=== PATIENT | female | born 1980 | race Caucasian/White ===

== ENCOUNTER 2019-04-25 14:08 | Inpatient (IN) | payer BC, SELFPAY ==
[2019-04-25 14:12] VITALS: BP 142/96; PULSE 96; RESP 16; TEMP 36.2; O2SAT 98; BMI 53.6
[2019-04-25 14:40] LABS: Add Manual Diff / Slide Review NO; Basophils Absolute Auto 100 /uL (0-100); Basophils Percent Auto 0.4 % (0-2); Eosinophils Absolute Auto 100 /uL (0-450); Eosinophils Percent Auto 1.1 % (2-4); Hematocrit 40.5 % (36-46); Hemoglobin 13.7 g/dL (12.0-16.0); Lymphocytes Absolute Auto 1600 /uL (1100-4500); Lymphocytes Percent Auto 12.5 % (25-40); Mean Corpuscular HGB Conc 33.8 % (30-36); Mean Corpuscular Hemoglobin 28.7 PG (26-34); Monocytes Absolute Auto 800 /uL (0-900); Monocytes Percent Auto 6.3 % (3-14); Neutrophils Absolute Auto 10400 /uL (1500-7000); Neutrophils Percent Auto 79.7 % (50-75); Platelet Count 617 X10^3/uL (150-400); Red Blood Cell Count 4.77 X10^6/uL (4.0-5.2); Red Cell Distribution Width 14.3 % (11.6-14.8)
[2019-04-25 14:46] LABS: INR 1.1 (0.9-1.3); Prothrombin Time 12.6 SECONDS (10.1-12.7)
[2019-04-25 14:49] LABS: PTT Partial Thromboplastin Tim 30 SECONDS (26.4-36.2)
[2019-04-25 14:51] LABS: Alanine Aminotransferase 45 IU/L (<35); Albumin 4.7 g/dL (3.5-5.0); Albumin Globulin Ratio 1.1 (1.0-2.8); Alkaline Phosphatase 142 U/L (38-126); Aspartate Aminotransferase 40 IU/L (14-36); BUN Creatinine Ratio 11.1 (6-22); Bilirubin Total 1.3 mg/dL (0.2-1.3); Blood Urea Nitrogen 10 mg/dL (7-17); Calcium 10.3 mg/dL (8.4-10.2); Carbon Dioxide 26 mmol/L (22-32); Chloride 104 mmol/L (98-107); Estimated Glomerular Filt Rate > 60.0 mL/min (>60); Globulin 4.3 g/dL (1.7-4.1); Glucose 113 mg/dL (70-100); HEMOLYSIS < 15 (0-50); Lipase 69 U/L (23-300); Potassium 4.1 mmol/L (3.4-5.1); Sodium 143 mmol/L (137-145)
[2019-04-25 15:50] LABS: Amorphous Sediment Urine 1+; Bacteria Urine Few (2-10); Hyaline Casts Urine 1-5/LPF; RBC Urine 0-1/HPF (0-5/HPF); Squamous Epithelial Cell Urine 1-5 /HPF (0-5/HPF); Transitional Epi Cells Urine 0-1/HPF (0-5/HPF); WBC Urine 1-5/HPF (0-5/HPF)
[2019-04-25 15:51] LABS: Culture Indicated Urine Specimen Cultured; Urine Comments LEU ESTERASE +
--- NOTE | 2019-04-25 16:39 | ED_ITS ---
HPI - Abdominal Pain <Shauna Hernandez PA-C - Last Filed: 04/25/19 21:00> General Chief Complaint: Abdominal Pain Stated Complaint: sent by Doctor,dark urine,pain with eating Time Seen by Provider: 04/25/19 15:45 Source: patient Mode of arrival: Ambulatory Limitations: no limitations History of Present Illness HPI narrative: This 38-year-old patient is sent to ED by her PCP due to abdomina l pain. Patient states that PCP was concerned about diverticulitis, or possible appendicitis or kidney infection. 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 She took a nap and later awoke with what she thought was ?gas pain? in her left lower quadrant. She had persistent pain over the next couple of days, and 1 episode of vomiting on Monday. She states that she has had ongoing nausea and has eaten very little due to nausea as well as pain which worsens if she eats anything or drinks more than half a cup of water (states that she did work yesterday and had 2 L of fluid but only half a cup today). She states that she had a fever of 101.4 on Monday night and earlier on but none since Monday. She states that initially she thought she had a viral infection as she heard of some others who had ?stomach flu?, but when she saw her PCP today thought further workup was needed. She states for the last 2 days her urine has looked ?orange?. She has not had any blood in the urine. She denies any frequency, urgency, or dysuria. She states that she has had only small bowel movements, no blood in the stools or diarrhea. She denies any chest pain or dyspnea. She denies any possibility of (on control and not sexually active in the last couple of years). She denies any chronic medical problems or known lab abnormalities however does note that her sister has elevated platelets which are being evaluated Related Data Home Medications Medication Instructions Recorded Confirmed cetirizine 10 mg PO QPM 04/25/19 04/25/19 cholecalciferol (vitamin D3) 1,000 unit PO QPM 04/25/19 04/25/19 [Vitamin D3] ferrous sulfate 325 mg PO QPM 04/25/19 04/25/19 levonorgestrel-ethinyl estrad 1 tab PO QPM 04/25/19 04/25/19 multivitamin 1 tab PO QPM 04/25/19 04/25/19 omeprazole 20 - 40 mg PO QPM 04/25/19 04/25/19 sertraline 150 mg PO QPM 04/25/19 04/25/19 Allergies Allergy/AdvReac Type Severity Reaction Status Date / Time No Known Drug Allergies Allergy Verified 04/25/19 14:18 Review of Systems <Shauna Hernandez PA-C - Last Filed: 04/25/19 21:00> Review of Systems ROS Unobtainable: All systems reviewed & are unremarkable except as noted in HPI and below Patient History <Shauna Hernandez PA-C - Last Filed: 04/25/19 21:00> Medical History Depression (Chronic) Obesity (Acute) Surgical History No history of previous surgery (Chronic) Social History household members: none Smoking Status: Never smoker alcohol intake: never Smoking Status: Never smoker Substance Use Type: does not use Exam <Shauna Hernandez PA-C - Last Filed: 04/25/19 21:00> Narrative Exam Narrative: GENERAL APPEARANCE: Patient sitting comfortably (playing with oximeter wire), in no distress. HEENT: PERRL, EOMI, no scleral icterus, conjunctiva pink, normal oropharynx NECK: Supple, no masses LUNGS: Clear to auscultation bilaterally. HEART: Rate and rhythm regular, normal S1 and S2, no S3 or S4. ABDOMEN: Obese, soft, nondistended, bowel sounds present x 4 quadrants, no masses palpable, no hepatosplenomegaly. Tender throughout the lower quadrants, more on the left side without guarding or rebound. No CVAT EXTREMITIES: No edema, no calf tenderness DERMATOLOGIC: No jaundice or exanthem NEUROLOGIC: Alert and oriented with normal speech and coordination Initial Vital Signs Initial Vital Signs: Vital Signs Temperature 97.2 F L 04/25/19 14:12 Pulse Rate 96 H 04/25/19 14:12 Respiratory Rate 16 04/25/19 14:12 Blood Pressure 142/96 H 04/25/19 14:12 Pulse Oximetry 98 04/25/19 14:12 <Irma Stevens MD - Last Filed: 04/29/19 12:20> Initial Vital Signs Initial Vital Signs: Vital Signs Temperature 97.2 F L 04/25/19 14:12 Pulse Rate 96 H 04/25/19 14:12 Respiratory Rate 16 04/25/19 14:12 Blood Pressure 142/96 H 04/25/19 14:12 Pulse Oximetry 98 04/25/19 14:12 Course <Shauna Hernandez PA-C - Last Filed: 04/25/19 21:00> Course Additional Information: Radiology phoned with CT findings. Patient is feeling comfortable after Toradol, Zofran. Has not had any recurrent vomiting. I spoke with Dr. Naik, on-call for surgery, who advised admission to him with at least overnight observation. Advised patient can take any home meds p.o. but otherwise NPO. We will give initial Zofran dose. Is unclear whether patient's mildly elevated LFTs and thrombocytosis are chronic. I did review these with her and can follow up with her PCP, especially given that her sister has been found to have thrombocytosis. She appears well and comfortable on transfer from the department. Orders Ordered: ED Orders 04/29/19 05:25 BMP [Basic Metabolic Panel] DAILY Complete Blood Count AUTO DIFF DAILY Acetaminophen (Tylenol) 650 mg PO Q6HR PRN PRN Reason: Fever/Mild Pain (1-3) Last Admin: 04/27/19 19:32 Dose: 650 mg Documented by: Admin: 04/26/19 12:59 Dose: 650 mg Documented by: MARISSA Enoxaparin Sodium (Lovenox) 40 mg SUBCUT BID [facility] Last Admin: 04/29/19 08:45 Dose: 40 mg Documented by: Admin: 04/28/19 20:25 Dose: 40 mg Documented by: DILAN Sodium Chloride (Normal Saline 0.9%) 1,000 mls @ 125 mls/hr IV CONT [facility] Last Admin: 04/29/19 10:11 Dose: 125 mls/hr Documented by: Infusion: 04/29/19 08:59 Dose: 125 mls/hr Documented by: Admin: 04/29/19 00:59 Dose: 125 mls/hr Documented by: Infusion: 04/29/19 00:00 Dose: 125 mls/hr Documented by: Admin: 04/28/19 16:00 Dose: 125 mls/hr Documented by: Infusion: 04/28/19 13:15 Dose: 125 mls/hr Documented by: Admin: 04/28/19 05:15 Dose: 125 mls/hr Documented by: Infusion: 04/28/19 03:34 Dose: 125 mls/hr Documented by: Admin: 04/27/19 19:34 Dose: 125 mls/hr Documented by: Infusion: 04/27/19 19:03 Dose: 125 mls/hr Documented by: Admin: 04/27/19 11:03 Dose: 125 mls/hr Documented by: Infusion: 04/27/19 09:37 Dose: 125 mls/hr Documented by: Admin: 04/27/19 01:37 Dose: 125 mls/hr Documented by: Infusion: 04/27/19 01:16 Dose: 125 mls/hr Documented by: Admin: 04/26/19 17:16 Dose: 125 mls/hr Documented by: Infusion: 04/26/19 15:00 Dose: 125 mls/hr Documented by: Admin: 04/26/19 07:00 Dose: 125 mls/hr Documented by: Infusion: 04/26/19 07:00 Dose: 125 mls/hr Documented by: Admin: 04/25/19 23:50 Dose: 125 mls/hr Documented by: HBUSH Piperacillin/Tazobactam/Dextrose (Zosyn) 4.5 gm in 100 mls @ 200 mls/hr IV Q6H EMRE Last Infusion: 04/29/19 10:11 Dose: 0 mls/hr Documented by: Admin: 04/29/19 08:45 Dose: 200 mls/hr Documented by: Infusion: 04/29/19 03:30 Dose: 0 mls/hr Documented by: Admin: 04/29/19 02:59 Dose: 200 mls/hr Documented by: Infusion: 04/28/19 20:54 Dose: 0 mls/hr Documented by: Admin: 04/28/19 20:24 Dose: 200 mls/hr Documented by: Infusion: 04/28/19 15:17 Dose: 200 mls/hr Documented by: Admin: 04/28/19 14:27 Dose: 200 mls/hr Documented by: Infusion: 04/28/19 09:42 Dose: 200 mls/hr Documented by: Admin: 04/28/19 08:25 Dose: 200 mls/hr Documented by: Infusion: 04/28/19 03:45 Dose: 0 mls/hr Documented by: Admin: 04/28/19 03:10 Dose: 200 mls/hr Documented by: Infusion: 04/27/19 21:09 Dose: 200 mls/hr Documented by: Admin: 04/27/19 20:39 Dose: 200 mls/hr Documented by: Infusion: 04/27/19 18:08 Dose: 0 mls/hr Documented by: Admin: 04/27/19 14:14 Dose: 200 mls/hr Documented by: VIRGINIA Morphine Sulfate (Morphine) 4 mg IV Q4HR PRN PRN Reason: Pain, Severe (7-10) Naloxone HCl (Narcan) 0.2 mg IV Q2MIN PRN PRN Reason: Opiate Reversal Nystatin (Nystatin) 1 applic TOP BID PRN PRN Reason: Rash Ondansetron HCl (Zofran) 4 mg IV Q4HR PRN PRN Reason: Nausea And Vomiting Last Admin: 04/29/19 08:43 Dose: 4 mg Documented by: Admin: 04/28/19 23:23 Dose: 4 mg Documented by: Admin: 04/28/19 08:25 Dose: 4 mg Documented by: Admin: 04/27/19 08:25 Dose: 4 mg Documented by: Admin: 04/26/19 09:13 Dose: 4 mg Documented by: MARISSA Oxycodone HCl (Percolone) 5 mg PO Q4HR PRN PRN Reason: Pain, Moderate (4-6) Pantoprazole Sodium (Protonix) 20 mg PO 0700,2100 EM[facility] Last Admin: 04/29/19 06:43 Dose: 20 mg Documented by: Admin: 04/28/19 20:25 Dose: 20 mg Documented by: Admin: 04/28/19 05:19 Dose: 20 mg Documented by: Admin: 04/27/19 20:39 Dose: 20 mg Documented by: DOROTHY Sertraline HCl (Zoloft) 150 mg PO BEDTIME [facility] Last Admin: 04/28/19 20:25 Dose: 150 mg Documented by: Admin: 04/27/19 20:39 Dose: 150 mg Documented by: Admin: 04/26/19 21:32 Dose: 150 mg Documented by: Admin: 04/25/19 23:48 Dose: 150 mg Documented by: PAULO Discontinued Medications Enoxaparin Sodium (Lovenox) 40 mg SUBCUT DAILY [facility] Last Admin: 04/27/19 08:25 Dose: 40 mg Documented by: Admin: 04/26/19 09:13 Dose: 40 mg Documented by: MARISSA Enoxaparin Sodium (Lovenox) 40 mg SUBCUT BID [facility] Last Admin: 04/28/19 08:26 Dose: 40 mg Documented by: Admin: 04/27/19 20:38 Dose: 40 mg Documented by: DOROTHY Sodium Chloride (Normal Saline 0.9%) 1,000 mls @ 1,000 mls/hr IV BOLUS ONE Stop: 04/25/19 17:56 Last Infusion: 04/25/19 19:24 Dose: 0 mls/hr Documented by: Admin: 04/25/19 17:32 Dose: 1,000 mls/hr Documented by: MEIOSMANY Piperacillin/Tazobactam/Dextrose (Zosyn) 4.5 gm in 100 mls @ 200 mls/hr IV NOW ONE Stop: 04/25/19 18:51 Last Infusion: 04/25/19 20:44 Dose: 0 mls/hr Documented by: Infusion: 04/25/19 19:31 Dose: 200 mls/hr Documented by: Admin: 04/25/19 19:27 Dose: 200 mls/hr Documented by: KBROTEM Piperacillin/Tazobactam/Dextrose (Zosyn) 3.375 gm in 50 mls @ 100 mls/hr IV Q8H [facility]ERE Last Infusion: 04/27/19 09:38 Dose: 0 mls/hr Documented by: Admin: 04/27/19 08:27 Dose: 100 mls/hr Documented by: Infusion: 04/27/19 07:37 Dose: 0 mls/hr Documented by: Admin: 04/27/19 01:37 Dose: 100 mls/hr Documented by: Infusion: 04/26/19 20:08 Dose: 0 mls/hr Documented by: Admin: 04/26/19 17:54 Dose: 100 mls/hr Documented by: Infusion: 04/26/19 09:45 Dose: 0 mls/hr Documented by: Admin: 04/26/19 09:14 Dose: 100 mls/hr Documented by: Infusion: 04/26/19 06:05 Dose: 0 mls/hr Documented by: Admin: 04/26/19 02:29 Dose: 100 mls/hr Documented by: PAULO Ketorolac Tromethamine (Toradol) 30 mg IV NOW ONE Stop: 04/25/19 16:58 Last Admin: 04/25/19 17:33 Dose: 30 mg Documented by: KATHY Ondansetron HCl (Zofran) 4 mg IV NOW ONE Stop: 04/25/19 16:58 Last Admin: 04/25/19 17:33 Dose: 4 mg Documented by: KATHY Ondansetron HCl (Zofran) 4 mg IV Q8HR PRN PRN Reason: Nausea And Vomiting Last Admin: 04/26/19 03:09 Dose: 4 mg Documented by: PAULO Pantoprazole Sodium (Protonix) 40 mg IV NOW ONE Stop: 04/25/19 16:58 Last Admin: 04/25/19 17:33 Dose: 40 mg Documented by: KATHY Polyethylene Glycol (Miralax) 238 gm PO NOW ONE Stop: 04/28/19 17:16 Last Admin: 04/28/19 17:10 Dose: 238 gm Documented by: CECI Potassium Chloride (Potassium Chloride) 40 meq PO NOW ONE Stop: 04/29/19 10:52 Last Admin: 04/29/19 11:08 Dose: 40 meq Documented by: SUMAYA Vital Signs Vital signs: Vital Signs - 8 hr 04/25/19 14:12 04/25/19 18:21 Temperature 97.2 F L Pulse Rate 96 H 85 Respiratory Rate 16 16 Blood Pressure 142/96 H Blood Pressure [Left Arm] 149/90 H Pulse Oximetry 98 98 <Irma Stevens MD - Last Filed: 04/29/19 12:20> Orders Ordered: ED Orders 04/29/19 05:25 BMP [Basic Metabolic Panel] DAILY Complete Blood Count AUTO DIFF DAILY Acetaminophen (Tylenol) 650 mg PO Q6HR PRN PRN Reason: Fever/Mild Pain (1-3) Last Admin: 04/27/19 19:32 Dose: 650 mg Documented by: Admin: 04/26/19 12:59 Dose: 650 mg Documented by: MARISSA Enoxaparin Sodium (Lovenox) 40 mg SUBCUT BID [facility] Last Admin: 04/29/19 08:45 Dose: 40 mg Documented by: Admin: 04/28/19 20:25 Dose: 40 mg Documented by: DILAN Sodium Chloride (Normal Saline 0.9%) 1,000 mls @ 125 mls/hr IV CONT [facility] Last Admin: 04/29/19 10:11 Dose: 125 mls/hr Documented by: Infusion: 04/29/19 08:59 Dose: 125 mls/hr Documented by: Admin: 04/29/19 00:59 Dose: 125 mls/hr Documented by: Infusion: 04/29/19 00:00 Dose: 125 mls/hr Documented by: Admin: 04/28/19 16:00 Dose: 125 mls/hr Documented by: Infusion: 04/28/19 13:15 Dose: 125 mls/hr Documented by: Admin: 04/28/19 05:15 Dose: 125 mls/hr Documented by: Infusion: 04/28/19 03:34 Dose: 125 mls/hr Documented by: Admin: 04/27/19 19:34 Dose: 125 mls/hr Documented by: Infusion: 04/27/19 19:03 Dose: 125 mls/hr Documented by: Admin: 04/27/19 11:03 Dose: 125 mls/hr Documented by: Infusion: 04/27/19 09:37 Dose: 125 mls/hr Documented by: DINOOLAnton Admin: 04/27/19 01:37 Dose: 125 mls/hr Documented by: Infusion: 04/27/19 01:16 Dose: 125 mls/hr Documented by: Admin: 04/26/19 17:16 Dose: 125 mls/hr Documented by: Infusion: 04/26/19 15:00 Dose: 125 mls/hr Documented by: Admin: 04/26/19 07:00 Dose: 125 mls/hr Documented by: Infusion: 04/26/19 07:00 Dose: 125 mls/hr Documented by: Admin: 04/25/19 23:50 Dose: 125 mls/hr Documented by: PAULO Piperacillin/Tazobactam/Dextrose (Zosyn) 4.5 gm in 100 mls @ 200 mls/hr IV Q6H EMRE Last Infusion: 04/29/19 10:11 Dose: 0 mls/hr Documented by: Admin: 04/29/19 08:45 Dose: 200 mls/hr Documented by: Infusion: 04/29/19 03:30 Dose: 0 mls/hr Documented by: Admin: 04/29/19 02:59 Dose: 200 mls/hr Documented by: Infusion: 04/28/19 20:54 Dose: 0 mls/hr Documented by: Admin: 04/28/19 20:24 Dose: 200 mls/hr Documented by: Infusion: 04/28/19 15:17 Dose: 200 mls/hr Documented by: Admin: 04/28/19 14:27 Dose: 200 mls/hr Documented by: Infusion: 04/28/19 09:42 Dose: 200 mls/hr Documented by: Admin: 04/28/19 08:25 Dose: 200 mls/hr Documented by: Infusion: 04/28/19 03:45 Dose: 0 mls/hr Documented by: Admin: 04/28/19 03:10 Dose: 200 mls/hr Documented by: Infusion: 04/27/19 21:09 Dose: 200 mls/hr Documented by: Admin: 04/27/19 20:39 Dose: 200 mls/hr Documented by: Infusion: 04/27/19 18:08 Dose: 0 mls/hr Documented by: Admin: 04/27/19 14:14 Dose: 200 mls/hr Documented by: [place] Morphine Sulfate (Morphine) 4 mg IV Q4HR PRN PRN Reason: Pain, Severe (7-10) Naloxone HCl (Narcan) 0.2 mg IV Q2MIN PRN PRN Reason: Opiate Reversal Nystatin (Nystatin) 1 applic TOP BID PRN PRN Reason: Rash Ondansetron HCl (Zofran) 4 mg IV Q4HR PRN PRN Reason: Nausea And Vomiting Last Admin: 04/29/19 08:43 Dose: 4 mg Documented by: Admin: 04/28/19 23:23 Dose: 4 mg Documented by: Admin: 04/28/19 08:25 Dose: 4 mg Documented by: Admin: 04/27/19 08:25 Dose: 4 mg Documented by: Admin: 04/26/19 09:13 Dose: 4 mg Documented by: MARISSA Oxycodone HCl (Percolone) 5 mg PO Q4HR PRN PRN Reason: Pain, Moderate (4-6) Pantoprazole Sodium (Protonix) 20 mg PO 0700,2100 [facility] Last Admin: 04/29/19 06:43 Dose: 20 mg Documented by: Admin: 04/28/19 20:25 Dose: 20 mg Documented by: Admin: 04/28/19 05:19 Dose: 20 mg Documented by: Admin: 04/27/19 20:39 Dose: 20 mg Documented by: DOROTHY Sertraline HCl (Zoloft) 150 mg PO BEDTIME [facility] Last Admin: 04/28/19 20:25 Dose: 150 mg Documented by: Admin: 04/27/19 20:39 Dose: 150 mg Documented by: Admin: 04/26/19 21:32 Dose: 150 mg Documented by: Admin: 04/25/19 23:48 Dose: 150 mg Documented by: PAULO Discontinued Medications Enoxaparin Sodium (Lovenox) 40 mg SUBCUT DAILY [facility] Last Admin: 04/27/19 08:25 Dose: 40 mg Documented by: Admin: 04/26/19 09:13 Dose: 40 mg Documented by: MARISSA Enoxaparin Sodium (Lovenox) 40 mg SUBCUT BID [facility] Last Admin: 04/28/19 08:26 Dose: 40 mg Documented by: Admin: 04/27/19 20:38 Dose: 40 mg Documented by: DOROTHY Sodium Chloride (Normal Saline 0.9%) 1,000 mls @ 1,000 mls/hr IV BOLUS ONE Stop: 04/25/19 17:56 Last Infusion: 04/25/19 19:24 Dose: 0 mls/hr Documented by: Admin: 04/25/19 17:32 Dose: 1,000 mls/hr Documented by: KATHY Piperacillin/Tazobactam/Dextrose (Zosyn) 4.5 gm in 100 mls @ 200 mls/hr IV NOW ONE Stop: 04/25/19 18:51 Last Infusion: 04/25/19 20:44 Dose: 0 mls/hr Documented by: Infusion: 04/25/19 19:31 Dose: 200 mls/hr Documented by: Admin: 04/25/19 19:27 Dose: 200 mls/hr Documented by: AAMIR Piperacillin/Tazobactam/Dextrose (Zosyn) 3.375 gm in 50 mls @ 100 mls/hr IV Q8H [facility] Last Infusion: 04/27/19 09:38 Dose: 0 mls/hr Documented by: Admin: 04/27/19 08:27 Dose: 100 mls/hr Documented by: Infusion: 04/27/19 07:37 Dose: 0 mls/hr Documented by: Admin: 04/27/19 01:37 Dose: 100 mls/hr Documented by: Infusion: 04/26/19 20:08 Dose: 0 mls/hr Documented by: Admin: 04/26/19 17:54 Dose: 100 mls/hr Documented by: Infusion: 04/26/19 09:45 Dose: 0 mls/hr Documented by: Admin: 04/26/19 09:14 Dose: 100 mls/hr Documented by: Infusion: 04/26/19 06:05 Dose: 0 mls/hr Documented by: Admin: 04/26/19 02:29 Dose: 100 mls/hr Documented by: PAULO Ketorolac Tromethamine (Toradol) 30 mg IV NOW ONE Stop: 04/25/19 16:58 Last Admin: 04/25/19 17:33 Dose: 30 mg Documented by: KATHY Ondansetron HCl (Zofran) 4 mg IV NOW ONE Stop: 04/25/19 16:58 Last Admin: 04/25/19 17:33 Dose: 4 mg Documented by: KATHY Ondansetron HCl (Zofran) 4 mg IV Q8HR PRN PRN Reason: Nausea And Vomiting Last Admin: 04/26/19 03:09 Dose: 4 mg Documented by: PAULO Pantoprazole Sodium (Protonix) 40 mg IV NOW ONE Stop: 04/25/19 16:58 Last Admin: 04/25/19 17:33 Dose: 40 mg Documented by: KATHY Polyethylene Glycol (Miralax) 238 gm PO NOW ONE Stop: 04/28/19 17:16 Last Admin: 04/28/19 17:10 Dose: 238 gm Documented by: CECI Potassium Chloride (Potassium Chloride) 40 meq PO NOW ONE Stop: 04/29/19 10:52 Last Admin: 04/29/19 11:08 Dose: 40 meq Documented by: SUMAYA Vital Signs Vital signs: Vital Signs - 8 hr 04/25/19 14:12 04/25/19 18:21 Temperature 97.2 F L Pulse Rate 96 H 85 Respiratory Rate 16 16 Blood Pressure 142/96 H Blood Pressure [Left Arm] 149/90 H Pulse Oximetry 98 98 MDM - Abdominal Pain <Shauna Hernandez PA-C - Last Filed: 04/25/19 21:00> Lab Data Result diagrams: 04/29/19 05:25 04/29/19 05:25 Labs: Lab Results 04/25/19 04/25/19 04/25/19 Range/Units 14:31 14:31 14:31 WBC 13.0 H (4.5-11.0) X10^3/uL RBC 4.77 (4.0-5.2) X10^6/uL Hgb 13.7 (12.0-16.0) g/dL Hct 40.5 (36-46) % MCV 85.0 (80-100) fL MCH 28.7 (26-34) PG MCHC 33.8 (30-36) % RDW 14.3 (11.6-14.8) % Plt Count 617 H (150-400) X10^3/uL Neut % (Auto) 79.7 H (50-75) % Lymph % (Auto) 12.5 L (25-40) % [place] % (Auto) 6.3 (3-14) % Eos % (Auto) 1.1 L (2-4) % Baso % (Auto) 0.4 (0-2) % Neut # (Auto) 58375 H (4794-3573) /uL Lymph # (Auto) 1600 (5571-9051) /uL [place] # (Auto) 800 (0-900) /uL Eos # (Auto) 100 (0-450) /uL Baso # (Auto) 100 (0-100) /uL Total Counted Seg Neutrophils % (38-70) % Band Neutrophils % (3-7) % Lymphocytes % (Manual) (25-45) % Monocytes % (Manual) (2-11) % Neutrophils # (Manual) (8257-6158) /uL RBC Morphology PT 12.6 (10.1-12.7) SECONDS INR 1.1 (0.9-1.3) APTT 30 (26.4-36.2) SECONDS Sodium 143 (137-145) mmol/L Potassium 4.1 (3.4-5.1) mmol/L Chloride 104 (98-107) mmol/L Carbon Dioxide 26 (22-32) mmol/L BUN 10 (7-17) mg/dL Creatinine 0.90 (0.52-1.04) mg/dL Estimated GFR > 60.0 (>60) mL/min BUN/Creatinine Ratio 11.1 (6-22) Glucose 113 H (70-100) mg/dL Calcium 10.3 H (8.4-10.2) mg/dL Total Bilirubin 1.3 (0.2-1.3) mg/dL AST 40 H (14-36) IU/L ALT 45 H (<35) IU/L Alkaline Phosphatase 142 H (38-126) U/L Total Creatine Kinase (30-135) U/L Total Protein 9.0 H (6.3-8.2) g/dL Albumin 4.7 (3.5-5.0) g/dL Globulin 4.3 H (1.7-4.1) g/dL Albumin/Globulin Ratio 1.1 (1.0-2.8) Lipase 69 (23-300) U/L Urine RBC (0-5/HPF) Urine WBC (0-5/HPF) Ur Squamous Epith Cells (0-5/HPF) Ur Transition Epith Cell (0-5/HPF) Amorphous Sediment Urine Bacteria (None) Hyaline Casts (None) Ur Culture Indicated? Micro UA Comment Urine Test (Negative) Nasal Screen MRSA (PCR) (Negative) 04/25/19 04/25/19 04/25/19 Range/Units 14:31 15:37 15:37 WBC (4.5-11.0) X10^3/uL RBC (4.0-5.2) X10^6/uL Hgb (12.0-16.0) g/dL Hct (36-46) % MCV (80-100) fL MCH (26-34) PG MCHC (30-36) % RDW (11.6-14.8) % Plt Count (150-400) X10^3/uL Neut % (Auto) (50-75) % Lymph % (Auto) (25-40) % [place] % (Auto) (3-14) % Eos % (Auto) (2-4) % Baso % (Auto) (0-2) % Neut # (Auto) (6002-8718) /uL Lymph # (Auto) (6590-7676) /uL [place] # (Auto) (0-900) /uL Eos # (Auto) (0-450) /uL Baso # (Auto) (0-100) /uL Total Counted Seg Neutrophils % (38-70) % Band Neutrophils % (3-7) % Lymphocytes % (Manual) (25-45) % Monocytes % (Manual) (2-11) % Neutrophils # (Manual) (8365-0785) /uL RBC Morphology PT (10.1-12.7) SECONDS INR (0.9-1.3) APTT (26.4-36.2) SECONDS Sodium (137-145) mmol/L Potassium (3.4-5.1) mmol/L Chloride (98-107) mmol/L Carbon Dioxide (22-32) mmol/L BUN (7-17) mg/dL Creatinine (0.52-1.04) mg/dL Estimated GFR (>60) mL/min BUN/Creatinine Ratio (6-22) Glucose (70-100) mg/dL Calcium (8.4-10.2) mg/dL Total Bilirubin (0.2-1.3) mg/dL AST (14-36) IU/L ALT (<35) IU/L Alkaline Phosphatase (38-126) U/L Total Creatine Kinase 44 (30-135) U/L Total Protein (6.3-8.2) g/dL Albumin (3.5-5.0) g/dL Globulin (1.7-4.1) g/dL Albumin/Globulin Ratio (1.0-2.8) Lipase (23-300) U/L Urine RBC 0-1/hpf (0-5/HPF) Urine WBC 1-5/hpf (0-5/HPF) Ur Squamous Epith Cells 1-5 /hpf (0-5/HPF) Ur Transition Epith Cell 0-1/hpf (0-5/HPF) Amorphous Sediment 1+ Urine Bacteria Few (2-10) H (None) Hyaline Casts 1-5/lpf (None) Ur Culture Indicated? Specimen cultured Micro UA Comment Kiley esterase + Urine Test Negative (Negative) Nasal Screen MRSA (PCR) (Negative) 04/25/19 04/26/19 04/26/19 Range/Units 19:45 04:46 04:46 WBC 8.9 (4.5-11.0) X10^3/uL RBC 4.13 (4.0-5.2) X10^6/uL Hgb 11.8 L (12.0-16.0) g/dL Hct 34.8 L (36-46) % MCV 84.3 (80-100) fL MCH 28.4 (26-34) PG MCHC 33.7 (30-36) % RDW 14.7 (11.6-14.8) % Plt Count 451 H (150-400) X10^3/uL Neut % (Auto) 72.6 (50-75) % Lymph % (Auto) 16.1 L (25-40) % [place] % (Auto) 8.8 (3-14) % Eos % (Auto) 2.2 (2-4) % Baso % (Auto) 0.3 (0-2) % Neut # (Auto) 6500 (7502-8721) /uL Lymph # (Auto) 1400 (9542-2637) /uL [place] # (Auto) 800 (0-900) /uL Eos # (Auto) 200 (0-450) /uL Baso # (Auto) 0 (0-100) /uL Total Counted Seg Neutrophils % (38-70) % Band Neutrophils % (3-7) % Lymphocytes % (Manual) (25-45) % Monocytes % (Manual) (2-11) % Neutrophils # (Manual) (6797-1522) /uL RBC Morphology PT (10.1-12.7) SECONDS INR (0.9-1.3) APTT (26.4-36.2) SECONDS Sodium 140 (137-145) mmol/L Potassium 3.6 (3.4-5.1) mmol/L Chloride 106 (98-107) mmol/L Carbon Dioxide 24 (22-32) mmol/L BUN 9 (7-17) mg/dL Creatinine 0.80 (0.52-1.04) mg/dL Estimated GFR > 60.0 (>60) mL/min BUN/Creatinine Ratio 11.3 (6-22) Glucose 99 (70-100) mg/dL Calcium 8.9 (8.4-10.2) mg/dL Total Bilirubin (0.2-1.3) mg/dL AST (14-36) IU/L ALT (<35) IU/L Alkaline Phosphatase (38-126) U/L Total Creatine Kinase (30-135) U/L Total Protein (6.3-8.2) g/dL Albumin (3.5-5.0) g/dL Globulin (1.7-4.1) g/dL Albumin/Globulin Ratio (1.0-2.8) Lipase (23-300) U/L Urine RBC (0-5/HPF) Urine WBC (0-5/HPF) Ur Squamous Epith Cells (0-5/HPF) Ur Transition Epith Cell (0-5/HPF) Amorphous Sediment Urine Bacteria (None) Hyaline Casts (None) Ur Culture Indicated? Micro UA Comment Urine Test (Negative) Nasal Screen MRSA (PCR) Negative for mrsa (Negative) 04/27/19 04/27/19 Range/Units 04:55 04:55 WBC 12.9 H (4.5-11.0) X10^3/uL RBC 4.19 (4.0-5.2) X10^6/uL Hgb 11.9 L (12.0-16.0) g/dL Hct 34.9 L (36-46) % MCV 83.4 (80-100) fL MCH 28.4 (26-34) PG MCHC 34.0 (30-36) % RDW 14.0 (11.6-14.8) % Plt Count 457 H (150-400) X10^3/uL Neut % (Auto) Not Reportable (50-75) % Lymph % (Auto) Not Reportable (25-40) % [place] % (Auto) Not Reportable (3-14) % Eos % (Auto) Not Reportable (2-4) % Baso % (Auto) Not Reportable (0-2) % Neut # (Auto) (3868-9806) /uL Lymph # (Auto) Not Reportable (6947-9680) /uL [place] # (Auto) Not Reportable (0-900) /uL Eos # (Auto) (0-450) /uL Baso # (Auto) Not Reportable (0-100) /uL Total Counted 100 Seg Neutrophils % 68.0 (38-70) % Band Neutrophils % 9.0 H (3-7) % Lymphocytes % (Manual) 17.0 L (25-45) % Monocytes % (Manual) 6.0 (2-11) % Neutrophils # (Manual) 9933 H (3147-2254) /uL RBC Morphology Normal morphology PT (10.1-12.7) SECONDS INR (0.9-1.3) APTT (26.4-36.2) SECONDS Sodium 138 (137-145) mmol/L Potassium 3.9 (3.4-5.1) mmol/L Chloride 104 (98-107) mmol/L Carbon Dioxide 24 (22-32) mmol/L BUN 5 L (7-17) mg/dL Creatinine 0.80 (0.52-1.04) mg/dL Estimated GFR > 60.0 (>60) mL/min BUN/Creatinine Ratio 6.3 (6-22) Glucose 105 H (70-100) mg/dL Calcium 9.0 (8.4-10.2) mg/dL Total Bilirubin (0.2-1.3) mg/dL AST (14-36) IU/L ALT (<35) IU/L Alkaline Phosphatase (38-126) U/L Total Creatine Kinase (30-135) U/L Total Protein (6.3-8.2) g/dL Albumin (3.5-5.0) g/dL Globulin (1.7-4.1) g/dL Albumin/Globulin Ratio (1.0-2.8) Lipase (23-300) U/L Urine RBC (0-5/HPF) Urine WBC (0-5/HPF) Ur Squamous Epith Cells (0-5/HPF) Ur Transition Epith Cell (0-5/HPF) Amorphous Sediment Urine Bacteria (None) Hyaline Casts (None) Ur Culture Indicated? Micro UA Comment Urine Test (Negative) Nasal Screen MRSA (PCR) (Negative) Point of care testing: Urine Dip Bedside Urine Glucose 100 mg/dl Bedside Urine Bilirubin + 1 Bedside Urine Ketone ++ 40 Urine Specific [place] 1.020 Bedside Urine Occult Blood + Bedside Urine pH 6.0 Bedside Urine Protein + 30 Bedside Urine Urobilinogen 2+ 4mg Bedside Urine Nitrite - Negative Bedside Urine Leukocytes +/- 15 Esterase <Irma Stevens MD - Last Filed: 04/29/19 12:20> Lab Data Labs: Lab Results 04/25/19 04/25/19 04/25/19 Range/Units 14:31 14:31 14:31 WBC 13.0 H (4.5-11.0) X10^3/uL RBC 4.77 (4.0-5.2) X10^6/uL Hgb 13.7 (12.0-16.0) g/dL Hct 40.5 (36-46) % MCV 85.0 (80-100) fL MCH 28.7 (26-34) PG MCHC 33.8 (30-36) % RDW 14.3 (11.6-14.8) % Plt Count 617 H (150-400) X10^3/uL Neut % (Auto) 79.7 H (50-75) % Lymph % (Auto) 12.5 L (25-40) % [place] % (Auto) 6.3 (3-14) % Eos % (Auto) 1.1 L (2-4) % Baso % (Auto) 0.4 (0-2) % Neut # (Auto) 59036 H (4317-6966) /uL Lymph # (Auto) 1600 (6971-6488) /uL [place] # (Auto) 800 (0-900) /uL Eos # (Auto) 100 (0-450) /uL Baso # (Auto) 100 (0-100) /uL Total Counted Seg Neutrophils % (38-70) % Band Neutrophils % (3-7) % Lymphocytes % (Manual) (25-45) % Monocytes % (Manual) (2-11) % Neutrophils # (Manual) (6267-3442) /uL RBC Morphology PT 12.6 (10.1-12.7) SECONDS INR 1.1 (0.9-1.3) APTT 30 (26.4-36.2) SECONDS Sodium 143 (137-145) mmol/L Potassium 4.1 (3.4-5.1) mmol/L Chloride 104 (98-107) mmol/L Carbon Dioxide 26 (22-32) mmol/L BUN 10 (7-17) mg/dL Creatinine 0.90 (0.52-1.04) mg/dL Estimated GFR > 60.0 (>60) mL/min BUN/Creatinine Ratio 11.1 (6-22) Glucose 113 H (70-100) mg/dL Calcium 10.3 H (8.4-10.2) mg/dL Total Bilirubin 1.3 (0.2-1.3) mg/dL AST 40 H (14-36) IU/L ALT 45 H (<35) IU/L Alkaline Phosphatase 142 H (38-126) U/L Total Creatine Kinase (30-135) U/L Total Protein 9.0 H (6.3-8.2) g/dL Albumin 4.7 (3.5-5.0) g/dL Globulin 4.3 H (1.7-4.1) g/dL Albumin/Globulin Ratio 1.1 (1.0-2.8) Lipase 69 (23-300) U/L Urine RBC (0-5/HPF) Urine WBC (0-5/HPF) Ur Squamous Epith Cells (0-5/HPF) Ur Transition Epith Cell (0-5/HPF) Amorphous Sediment Urine Bacteria (None) Hyaline Casts (None) Ur Culture Indicated? Micro UA Comment Urine Test (Negative) Nasal Screen MRSA (PCR) (Negative) 04/25/19 04/25/19 04/25/19 Range/Units 14:31 15:37 15:37 WBC (4.5-11.0) X10^3/uL RBC (4.0-5.2) X10^6/uL Hgb (12.0-16.0) g/dL Hct (36-46) % MCV (80-100) fL MCH (26-34) PG MCHC (30-36) % RDW (11.6-14.8) % Plt Count (150-400) X10^3/uL Neut % (Auto) (50-75) % Lymph % (Auto) (25-40) % [place] % (Auto) (3-14) % Eos % (Auto) (2-4) % Baso % (Auto) (0-2) % Neut # (Auto) (8671-3792) /uL Lymph # (Auto) (6831-6773) /uL [place] # (Auto) (0-900) /uL Eos # (Auto) (0-450) /uL Baso # (Auto) (0-100) /uL Total Counted Seg Neutrophils % (38-70) % Band Neutrophils % (3-7) % Lymphocytes % (Manual) (25-45) % Monocytes % (Manual) (2-11) % Neutrophils # (Manual) (7069-5854) /uL RBC Morphology PT (10.1-12.7) SECONDS INR (0.9-1.3) APTT (26.4-36.2) SECONDS Sodium (137-145) mmol/L Potassium (3.4-5.1) mmol/L Chloride (98-107) mmol/L Carbon Dioxide (22-32) mmol/L BUN (7-17) mg/dL Creatinine (0.52-1.04) mg/dL Estimated GFR (>60) mL/min BUN/Creatinine Ratio (6-22) Glucose (70-100) mg/dL Calcium (8.4-10.2) mg/dL Total Bilirubin (0.2-1.3) mg/dL AST (14-36) IU/L ALT (<35) IU/L Alkaline Phosphatase (38-126) U/L Total Creatine Kinase 44 (30-135) U/L Total Protein (6.3-8.2) g/dL Albumin (3.5-5.0) g/dL Globulin (1.7-4.1) g/dL Albumin/Globulin Ratio (1.0-2.8) Lipase (23-300) U/L Urine RBC 0-1/hpf (0-5/HPF) Urine WBC 1-5/hpf (0-5/HPF) Ur Squamous Epith Cells 1-5 /hpf (0-5/HPF) Ur Transition Epith Cell 0-1/hpf (0-5/HPF) Amorphous Sediment 1+ Urine Bacteria Few (2-10) H (None) Hyaline Casts 1-5/lpf (None) Ur Culture Indicated? Specimen cultured Micro UA Comment Kiley esterase + Urine Test Negative (Negative) Nasal Screen MRSA (PCR) (Negative) 04/25/19 04/26/19 04/26/19 Range/Units 19:45 04:46 04:46 WBC 8.9 (4.5-11.0) X10^3/uL RBC 4.13 (4.0-5.2) X10^6/uL Hgb 11.8 L (12.0-16.0) g/dL Hct 34.8 L (36-46) % MCV 84.3 (80-100) fL MCH 28.4 (26-34) PG MCHC 33.7 (30-36) % RDW 14.7 (11.6-14.8) % Plt Count 451 H (150-400) X10^3/uL Neut % (Auto) 72.6 (50-75) % Lymph % (Auto) 16.1 L (25-40) % [place] % (Auto) 8.8 (3-14) % Eos % (Auto) 2.2 (2-4) % Baso % (Auto) 0.3 (0-2) % Neut # (Auto) 6500 (7860-0598) /uL Lymph # (Auto) 1400 (0752-3470) /uL [place] # (Auto) 800 (0-900) /uL Eos # (Auto) 200 (0-450) /uL Baso # (Auto) 0 (0-100) /uL Total Counted Seg Neutrophils % (38-70) % Band Neutrophils % (3-7) % Lymphocytes % (Manual) (25-45) % Monocytes % (Manual) (2-11) % Neutrophils # (Manual) (0327-9056) /uL RBC Morphology PT (10.1-12.7) SECONDS INR (0.9-1.3) APTT (26.4-36.2) SECONDS Sodium 140 (137-145) mmol/L Potassium 3.6 (3.4-5.1) mmol/L Chloride 106 (98-107) mmol/L Carbon Dioxide 24 (22-32) mmol/L BUN 9 (7-17) mg/dL Creatinine 0.80 (0.52-1.04) mg/dL Estimated GFR > 60.0 (>60) mL/min BUN/Creatinine Ratio 11.3 (6-22) Glucose 99 (70-100) mg/dL Calcium 8.9 (8.4-10.2) mg/dL Total Bilirubin (0.2-1.3) mg/dL AST (14-36) IU/L ALT (<35) IU/L Alkaline Phosphatase (38-126) U/L Total Creatine Kinase (30-135) U/L Total Protein (6.3-8.2) g/dL Albumin (3.5-5.0) g/dL Globulin (1.7-4.1) g/dL Albumin/Globulin Ratio (1.0-2.8) Lipase (23-300) U/L Urine RBC (0-5/HPF) Urine WBC (0-5/HPF) Ur Squamous Epith Cells (0-5/HPF) Ur Transition Epith Cell (0-5/HPF) Amorphous Sediment Urine Bacteria (None) Hyaline Casts (None) Ur Culture Indicated? Micro UA Comment Urine Test (Negative) Nasal Screen MRSA (PCR) Negative for mrsa (Negative) 01/18/20 01/18/20 Range/Units 04:55 04:55 WBC 12.9 H (4.5-11.0) X10^3/uL RBC 4.19 (4.0-5.2) X10^6/uL Hgb 11.9 L (12.0-16.0) g/dL Hct 34.9 L (36-46) % MCV 83.4 (80-100) fL MCH 28.4 (26-34) PG MCHC 34.0 (30-36) % RDW 14.0 (11.6-14.8) % Plt Count 457 H (150-400) X10^3/uL Neut % (Auto) Not Reportable (50-75) % Lymph % (Auto) Not Reportable (25-40) % [place] % (Auto) Not Reportable (3-14) % Eos % (Auto) Not Reportable (2-4) % Baso % (Auto) Not Reportable (0-2) % Neut # (Auto) (8281-3553) /uL Lymph # (Auto) Not Reportable (3941-3105) /uL [place] # (Auto) Not Reportable (0-900) /uL Eos # (Auto) (0-450) /uL Baso # (Auto) Not Reportable (0-100) /uL Total Counted 100 Seg Neutrophils % 68.0 (38-70) % Band Neutrophils % 9.0 H (3-7) % Lymphocytes % (Manual) 17.0 L (25-45) % Monocytes % (Manual) 6.0 (2-11) % Neutrophils # (Manual) 9933 H (8716-4756) /uL RBC Morphology Normal morphology PT (10.1-12.7) SECONDS INR (0.9-1.3) APTT (26.4-36.2) SECONDS Sodium 138 (137-145) mmol/L Potassium 3.9 (3.4-5.1) mmol/L Chloride 104 (98-107) mmol/L Carbon Dioxide 24 (22-32) mmol/L BUN 5 L (7-17) mg/dL Creatinine 0.80 (0.52-1.04) mg/dL Estimated GFR > 60.0 (>60) mL/min BUN/Creatinine Ratio 6.3 (6-22) Glucose 105 H (70-100) mg/dL Calcium 9.0 (8.4-10.2) mg/dL Total Bilirubin (0.2-1.3) mg/dL AST (14-36) IU/L ALT (<35) IU/L Alkaline Phosphatase (38-126) U/L Total Creatine Kinase (30-135) U/L Total Protein (6.3-8.2) g/dL Albumin (3.5-5.0) g/dL Globulin (1.7-4.1) g/dL Albumin/Globulin Ratio (1.0-2.8) Lipase (23-300) U/L Urine RBC (0-5/HPF) Urine WBC (0-5/HPF) Ur Squamous Epith Cells (0-5/HPF) Ur Transition Epith Cell (0-5/HPF) Amorphous Sediment Urine Bacteria (None) Hyaline Casts (None) Ur Culture Indicated? Micro UA Comment Urine Test (Negative) Nasal Screen MRSA (PCR) (Negative) Point of care testing: Urine Dip Bedside Urine Glucose 100 mg/dl Bedside Urine Bilirubin + 1 Bedside Urine Ketone ++ 40 Urine Specific [place] 1.020 Bedside Urine Occult Blood + Bedside Urine pH 6.0 Bedside Urine Protein + 30 Bedside Urine Urobilinogen 2+ 4mg Bedside Urine Nitrite - Negative Bedside Urine Leukocytes +/- 15 Esterase Discharge Plan Departure Patient Disposition: Admitted as Observation Clinical Impression: Perforated diverticulum Discharge Date/Time: 04/25/19 19:33 Instructions: DI for Diverticulitis Referrals: Jean Naik MD [Physician] - Lloyd Hudson MD [Primary Care Provider] - Admit Date/Time: 04/27/19 15:23 Admit Provider: Jean Naik
[2019-04-25 16:50] LABS: Pregnancy Test Urine Negative (Negative)
[2019-04-25 16:53] LABS: Creatine Kinase 44 U/L (30-135)
--- NOTE | 2019-04-25 17:01 | DI.CT.S_ITS ---
PROCEDURE: CT ABDOMEN PELVIS W CON INDICATIONS: LLQ pain worse post prandial, n/v TECHNIQUE: After the administration of intravenous contrast, 5 mm thick sections acquired from the diaphragm to the symphysis. 5 mm coronal and sagittal reformats were acquired. For radiation dose reduction, the following was used: automated exposure control, adjustment of mA and/or kV according to patient size. COMPARISON: None. FINDINGS: Image quality: Excellent. ABDOMEN: Lung bases: Lung bases are clear. Heart size is normal. Solid organs: Liver is normal in size and enhancement. Gallbladder is normal. Biliary system is non dilated. Pancreas enhances normally. Spleen is normal in size and enhancement. No adrenal nodules. Kidneys demonstrate normal size and enhancement, without hydronephrosis. Peritoneum and bowel: There is a perforated diverticulum in the sigmoid colon with pockets of extraluminal gas collections in the mesentery. There is fat stranding in left lower quadrant. Bowel loops demonstrate normal wall thickness and caliber. No free fluid or air. Nodes and vessels: No retroperitoneal or mesenteric adenopathy by size criteria. Aorta and inferior vena cava are normal in size. Miscellaneous: No ventral hernias. PELVIS: Genitourinary: Bladder wall thickness is normal. Uterus and ovaries are normal. There is a small amount of free fluid in pelvis. Miscellaneous: No inguinal hernias or adenopathy. Bones: No suspicious bony lesions. No vertebral body compression fractures. IMPRESSION: 1. Sigmoid diverticulosis and acute diverticulitis with local perforation. 2. A small amount of free fluid. No organized, drainable fluid collection (abscess) at this time. Dictated by: Parveen Cornelius M.D. on 04/25/2019 at 18:07 Approved by: Parveen Cornelius M.D. on 04/25/2019 at 18:15
[2019-04-25] MEDS: SODIUM CHLORIDE 0.9% 1,000 ML 1000 ML IV (17:32)
[2019-04-25] MEDS: KETOROLAC 60 MG/2 ML VIAL 30 MG IV (17:33)
[2019-04-25] MEDS: PANTOPRAZOLE 40 MG VIAL IV (17:33)
[2019-04-25] MEDS: ONDANSETRON 4 MG/2 ML INJ IV (17:33)
[2019-04-25 18:21] VITALS: BP 149/90; PULSE 85; RESP 16; O2SAT 98
[2019-04-25] MEDS: PIPERACILLIN-TAZO 4.5 GM/100 ML FROZ.PIGGY IV (19:27)
[2019-04-25 19:47] VITALS: BMI 53.6
--- NOTE | 2019-04-25 20:35 | PC.NURSE ---
Addendum entered by Rossy Olguin R.N. 04/25/19 22:01: 2200 - Call placed to Dr. Naik. Notified of pt arrival to unit. Reviewed current status. Telephone orders obtained. Original Note: 1934 - Pt to room from ER. Able to stand and ambulate to bed. Denies pain except with deep palpation to LLQ. Denies nausea. Oral swabs provided for dry mouth. Educated to safety and call light use. Oriented to room and routine. Call light in reach.
[2019-04-25 23:32] VITALS: BP 135/71; PULSE 85; RESP 16; TEMP 36.4; O2SAT 94
[2019-04-25] MEDS: SERTRALINE 50 MG TABLET 150 MG PO (23:48)
[2019-04-25] MEDS: SODIUM CHLORIDE 0.9% 1,000 ML 125 ML IV (23:50)
[2019-04-26] VITALS (7 sets, daily range): BP systolic 134–148; BP diastolic 79–90; PULSE 76–99; RESP 16–18; TEMP 36.1–36.8; O2SAT 96–100
[2019-04-26] MEDS: PIPERACILLIN-TAZO 3.375 GM/50 ML FROZ.PIGGY IV ×3 (02:29→17:54)
[2019-04-26] MEDS: ONDANSETRON 4 MG/2 ML INJ IV ×2 (03:09→09:13)
--- NOTE | 2019-04-26 03:24 | PC.NURSE ---
Patient c/o gas pain 04/19 - declines analgesia but reports that it's kind of making me nauseous. Medicated with zofran per orders.
[2019-04-26 05:11] LABS: Add Manual Diff / Slide Review NO; Basophils Absolute Auto 0 /uL (0-100); Basophils Percent Auto 0.3 % (0-2); Eosinophils Absolute Auto 200 /uL (0-450); Eosinophils Percent Auto 2.2 % (2-4); Hematocrit 34.8 % (36-46); Hemoglobin 11.8 g/dL (12.0-16.0); Lymphocytes Absolute Auto 1400 /uL (1100-4500); Lymphocytes Percent Auto 16.1 % (25-40); Mean Corpuscular HGB Conc 33.7 % (30-36); Mean Corpuscular Hemoglobin 28.4 PG (26-34); Mean Corpuscular Volume 84.3 fL (80-100); Monocytes Absolute Auto 800 /uL (0-900); Monocytes Percent Auto 8.8 % (3-14); Neutrophils Absolute Auto 6500 /uL (1500-7000); Neutrophils Percent Auto 72.6 % (50-75); Platelet Count 451 X10^3/uL (150-400); Red Blood Cell Count 4.13 X10^6/uL (4.0-5.2); Red Cell Distribution Width 14.7 % (11.6-14.8); White Blood Cell Count 8.9 X10^3/uL (4.5-11.0)
[2019-04-26 05:13] LABS: BUN Creatinine Ratio 11.3 (6-22); Blood Urea Nitrogen 9 mg/dL (7-17); Calcium 8.9 mg/dL (8.4-10.2); Carbon Dioxide 24 mmol/L (22-32); Chloride 106 mmol/L (98-107); Estimated Glomerular Filt Rate > 60.0 mL/min (>60); Glucose 99 mg/dL (70-100); HEMOLYSIS < 15 (0-50); Potassium 3.6 mmol/L (3.4-5.1); Sodium 140 mmol/L (137-145)
[2019-04-26] MEDS: SODIUM CHLORIDE 0.9% 1,000 ML 125 ML IV ×2 (07:00→17:16)
[2019-04-26] MEDS: ENOXAPARIN 40 MG/0.4 ML SYRINGE SUBCUT (09:13)
--- NOTE | 2019-04-26 10:13 | P.HP_ITS ---
History of Present Illness History of Present Illness Date Patient Seen: 04/26/19 Time Patient Seen: 10:14 Chief complaint: sent by Doctor,dark urine,pain with eating Narrative: This is 38-year-old female with acute uncomplicated diverticulitis. The past 4 days she has been feeling pressure in her left lower quadrant associated with some nausea malaise anorexia. And in the emergency room she underwent a CT which demonstrated sigmoid diverticulitis with a micro perforation small amount of free fluid and stranding no abscess. White count 13 on admission urine studies notable for bacteria and leukocyte Estrace sent for culture.. She has never had a prior episode of diverticulitis however she has multiple family members with various degrees of diverticular disease. No history of colon cancer in first-degree relatives. She has never undergone colonoscopy. Past medical history is significant for super morbid obesity and depression. No prior abdominal surgeries. Patient History Medical History Depression (Chronic) Obesity (Acute) Surgical History No history of previous surgery (Chronic) Family & Social History Social History: household members none Prior Living Arrangements House Safety & Behavioral: Feels Safe in Current Yes Environment Been Physically Hurt or No Threatened By a Person Suicidal Ideation Description None Suicide Plan Description No Plan Tobacco & Substance use: Smoking Status Never smoker alcohol intake never alcohol intake frequency holiday/special occasion Substance Use Type does not use Meds Home Medications and Allergies Home Medications Medication Instructions Recorded Confirmed Type cetirizine 10 mg PO QPM 04/25/19 04/25/19 History cholecalciferol (vitamin D3) 1,000 unit PO QPM 04/25/19 04/25/19 History [Vitamin D3] ferrous sulfate 325 mg PO QPM 04/25/19 04/25/19 History levonorgestrel-ethinyl estrad 1 tab PO QPM 04/25/19 04/25/19 History multivitamin 1 tab PO QPM 04/25/19 04/25/19 History omeprazole 20 - 40 mg PO QPM 04/25/19 04/25/19 History sertraline 150 mg PO QPM 04/25/19 04/25/19 History Allergies Allergy/AdvReac Type Severity Reaction Status Date / Time No Known Drug Allergies Allergy Verified 04/25/19 14:18 Review of Systems Review of Systems Narrative: A 10 point review of systems is negative except as noted in the HPI Exam Vital Signs (past 8 hours): - 04/26/19 05:14 04/26/19 08:03 Temperature 97.0 F L 97.5 F L Pulse Rate 85 99 H Respiratory Rate 16 16 Blood Pressure 136/82 140/90 Pulse Oximetry 100 98 Oxygen Delivery Method Room Air Oxygen Flow Rate 0 Narrative Exam Narrative: General-no acute distress, morbidly obese female HEENT-moist mucous membranes, no scleral icterus Neck-supple, no lymphadenopathy Chest- non labored respirations, clear to auscultation bilaterally Cardiac-regular rate no peripheral edema Abdomen-mild left lower quadrant tenderness no peritonitis Extremities-warm, well perfused Neurological-alert and oriented, no focal deficits Objective Labs Result Diagrams: 04/26/19 04:46 04/26/19 04:46 Labs: Laboratory Results - last 24 hr 04/25/19 04/25/19 04/25/19 14:31 14:31 14:31 WBC 13.0 H RBC 4.77 Hgb 13.7 Hct 40.5 MCV 85.0 MCH 28.7 MCHC 33.8 RDW 14.3 Plt Count 617 H Neut % (Auto) 79.7 H Lymph % (Auto) 12.5 L [place] % (Auto) 6.3 Eos % (Auto) 1.1 L Baso % (Auto) 0.4 Neut # (Auto) 27971 H Lymph # (Auto) 1600 [place] # (Auto) 800 Eos # (Auto) 100 Baso # (Auto) 100 PT 12.6 INR 1.1 APTT 30 Sodium 143 Potassium 4.1 Chloride 104 Carbon Dioxide 26 BUN 10 Creatinine 0.90 Estimated GFR > 60.0 BUN/Creatinine Ratio 11.1 Glucose 113 H Calcium 10.3 H Total Bilirubin 1.3 AST 40 H ALT 45 H Alkaline Phosphatase 142 H Total Creatine Kinase Total Protein 9.0 H Albumin 4.7 Globulin 4.3 H Albumin/Globulin Ratio 1.1 Lipase 69 Urine RBC Urine WBC Ur Squamous Epith Cells Ur Transition Epith Cell Amorphous Sediment Urine Bacteria Hyaline Casts Ur Culture Indicated? Micro UA Comment Urine Test Nasal Screen MRSA (PCR) 04/25/19 04/25/19 04/25/19 14:31 15:37 15:37 WBC RBC Hgb Hct MCV MCH MCHC RDW Plt Count Neut % (Auto) Lymph % (Auto) [place] % (Auto) Eos % (Auto) Baso % (Auto) Neut # (Auto) Lymph # (Auto) [place] # (Auto) Eos # (Auto) Baso # (Auto) PT INR APTT Sodium Potassium Chloride Carbon Dioxide BUN Creatinine Estimated GFR BUN/Creatinine Ratio Glucose Calcium Total Bilirubin AST ALT Alkaline Phosphatase Total Creatine Kinase 44 Total Protein Albumin Globulin Albumin/Globulin Ratio Lipase Urine RBC 0-1/hpf Urine WBC 1-5/hpf Ur Squamous Epith Cells 1-5 /hpf Ur Transition Epith Cell 0-1/hpf Amorphous Sediment 1+ Urine Bacteria Few (2-10) H Hyaline Casts 1-5/lpf Ur Culture Indicated? Specimen cultured Micro UA Comment Kiley esterase + Urine Test Negative Nasal Screen MRSA (PCR) 04/25/19 04/26/19 04/26/19 19:45 04:46 04:46 WBC 8.9 RBC 4.13 Hgb 11.8 L Hct 34.8 L MCV 84.3 MCH 28.4 MCHC 33.7 RDW 14.7 Plt Count 451 H Neut % (Auto) 72.6 Lymph % (Auto) 16.1 L [place] % (Auto) 8.8 Eos % (Auto) 2.2 Baso % (Auto) 0.3 Neut # (Auto) 6500 Lymph # (Auto) 1400 [place] # (Auto) 800 Eos # (Auto) 200 Baso # (Auto) 0 PT INR APTT Sodium 140 Potassium 3.6 Chloride 106 Carbon Dioxide 24 BUN 9 Creatinine 0.80 Estimated GFR > 60.0 BUN/Creatinine Ratio 11.3 Glucose 99 Calcium 8.9 Total Bilirubin AST ALT Alkaline Phosphatase Total Creatine Kinase Total Protein Albumin Globulin Albumin/Globulin Ratio Lipase Urine RBC Urine WBC Ur Squamous Epith Cells Ur Transition Epith Cell Amorphous Sediment Urine Bacteria Hyaline Casts Ur Culture Indicated? Micro UA Comment Urine Test Nasal Screen MRSA (PCR) Negative for mrsa Assessment & Plan Assessment & Plan narrative: 38-year-old female with 1st episode of acute uncomplicated diverticulitis and urinary tract infection. Mild left lower q uadrant tenderness afebrile white blood cell count 9 today from 13 yesterday on Zosyn. I reviewed her CT which demonstrates the micro perforation and some associated fluid and stranding around the sigmoid colon but no abscess. Will manage medically. -Zosyn -IV fluid -okay for clears today -need colonoscopy in 8 weeks -follow-up urine culture -CBC and BMP tomorrow -anticipate discharge this weekend on oral antibiotics
[2019-04-26] MEDS: ACETAMINOPHEN 325 MG TABLET 650 MG PO (12:59)
--- NOTE | 2019-04-26 14:29 | CM.DANOTE ---
Discharge Planning/Care Management DCP: assessment: case received, EMR reviewed and met with pt and her mother. Introduced self and role. Pt is a 38 year old female who admitted yesterday evening to care of [facility]: Dr. Naik. Pt was sent by her PCP: Dr. Andrea Hudson. Payer: out of State [employer] Admission status: OBS: confirmed by UR CHRISTINE Love. Pt is being treated for acute uncomplicated diverticulitis with micro-perferations: IV antibiotics and IV fluids. She carries dx of morbid obesity: wt: 321 lbs Pt is found sitting up in bed, looks comfortable. She confirms that she does live by herself on [address] with 3 cats. Her mother Kati also lives on the [place] and both confirm she and multiple community friends/neighbors will check in on her if need be after d/c. She is functionally independent in the community. At this time Dr. Naik is treating pt medically with plan for home ,perhaps this weekend ,if stable for same. Assured pt and her mother that DCP team will follow daily to assist with any d/c needs that may arise. CM Discharge Assessment Start: 04/26/19 14:28 Freq: Status: Active Protocol: Document 04/26/19 14:28 ITV (Rec: 04/26/19 14:29 ITV [id number]) Discharge Planning Assessment Advance Directives? No History Provided By Patient,Family Member,Medical Record Prior Living Arrangements House Household Members none Independent with ADL's Yes Is patient alert and oriented? Yes Review Status In Process
--- NOTE | 2019-04-26 17:35 | PC.NURSE ---
Addendum entered by Rossy Olguni R.N. 04/26/19 21:26: 2130 -Pt up ambulating in the halls multiple times this evening. Continues to report gas-like abd pain. A-febril. Declines need for intervention with pain. Original Note: 1645 - Pt denies pain, however, reports gas-like discomfort. Bowel tones hyperactive. Denies nausea. Encouraged ambulation. Pt ambulated the halls multiple times. Set up for clear liquid dinner.
[2019-04-26] MEDS: SERTRALINE 50 MG TABLET 150 MG PO (21:32)
[2019-04-27] VITALS (7 sets, daily range): BP systolic 130–139; BP diastolic 64–91; PULSE 78–88; RESP 16–19; TEMP 36.5–37.1; O2SAT 97–100
[2019-04-27] MEDS: PIPERACILLIN-TAZO 3.375 GM/50 ML FROZ.PIGGY IV ×2 (01:37→08:27)
[2019-04-27] MEDS: SODIUM CHLORIDE 0.9% 1,000 ML 125 ML IV ×3 (01:37→19:34)
--- NOTE | 2019-04-27 02:09 | PC.NURSE ---
Addendum entered by Pepe Franks R.N. 04/27/19 04:31: 0400: Awake, up to bathroom with sba, voided. Urine is dark shirley. Vital signs stable. Original Note: Manager Pricing Note: 2345: Ambulating around ICU independently. IV in place in rt AC with NS infusing at 125cc/hr. Pt states her abdominal pain is about 3/10 and declines any intervention. Pt passing some flatus. Vital signs stable.
[2019-04-27 05:25] LABS: BUN Creatinine Ratio 6.3 (6-22); Blood Urea Nitrogen 5 mg/dL (7-17); Carbon Dioxide 24 mmol/L (22-32); Chloride 104 mmol/L (98-107); Estimated Glomerular Filt Rate > 60.0 mL/min (>60); Glucose 105 mg/dL (70-100); HEMOLYSIS < 15 (0-50); Potassium 3.9 mmol/L (3.4-5.1); Sodium 138 mmol/L (137-145)
[2019-04-27 05:43] LABS: Hematocrit 34.9 % (36-46); Hemoglobin 11.9 g/dL (12.0-16.0); Mean Corpuscular Hemoglobin 28.4 PG (26-34); Mean Corpuscular Volume 83.4 fL (80-100); Platelet Count 457 X10^3/uL (150-400); Red Blood Cell Count 4.19 X10^6/uL (4.0-5.2); White Blood Cell Count 12.9 X10^3/uL (4.5-11.0)
[2019-04-27 05:51] LABS: Add Manual Diff / Slide Review YES
[2019-04-27 07:07] LABS: Neutrophils Absolute Manual 9933 /uL (3000-5900); Total Cells Counted 100
[2019-04-27 07:08] LABS: RBC Morphology Normal Morphology
[2019-04-27] MEDS: ENOXAPARIN 40 MG/0.4 ML SYRINGE SUBCUT ×2 (08:25→20:38)
[2019-04-27] MEDS: ONDANSETRON 4 MG/2 ML INJ IV (08:25)
--- NOTE | 2019-04-27 08:46 | CM.DPC ---
DCP Cont: Checked on patient, she was ambulating in ICU with nurse. Chelle, ICU, anticipates that patient may be here another day, slowly advancing diet. P: DCP to continue to check in for any concerns. Michelle Gutierrez RN/Instruction Assistant Principal
--- NOTE | 2019-04-27 11:07 | P.PN_ITS ---
Subjective Subjective Date Patient Seen: 04/27/19 Time Patient Seen: 11:07 Interval history: Pt did well yesterday, but began having increased pain and nausea and small amount of vomiting this morning. Passed some loose stool. Exam Vital Signs (past 8 hours): - 04/27/19 03:54 04/27/19 07:54 04/27/19 07:57 Temperature 97.9 F 98.2 F Pulse Rate 87 88 Respiratory Rate 18 16 Blood Pressure 138/74 130/80 Pulse Oximetry 98 97 97 Oxygen Delivery Method Room Air Oxygen Flow Rate 0 Narrative Exam Narrative: General-resting comfortably, in no distress, appears stated age, morbidly obese female HEENT-moist mucous membranes, no scleral icterus Neck-supple, no lymphadenopathy Chest- non labored respirations, non tachypneic, breathing comfortably on room air Cardiac-regular rate no peripheral edema Abdomen-LLQ TTP, focal peritonitis; other quadrants non tender : flanks non tender Extremities-warm, well perfused Neurological-alert and oriented, no focal deficits Objective Labs Result Diagrams: 04/27/19 04:55 04/27/19 04:55 Labs: Laboratory Results - last 24 hr 04/27/19 04/27/19 04:55 04:55 WBC 12.9 H RBC 4.19 Hgb 11.9 L Hct 34.9 L MCV 83.4 MCH 28.4 MCHC 34.0 RDW 14.0 Plt Count 457 H Neut % (Auto) Not Reportable Lymph % (Auto) Not Reportable [place] % (Auto) Not Reportable Eos % (Auto) Not Reportable Baso % (Auto) Not Reportable Lymph # (Auto) Not Reportable [place] # (Auto) Not Reportable Baso # (Auto) Not Reportable Total Counted 100 Seg Neutrophils % 68.0 Band Neutrophils % 9.0 H Lymphocytes % (Manual) 17.0 L Monocytes % (Manual) 6.0 Neutrophils # (Manual) 9933 H RBC Morphology Normal morphology Sodium 138 Potassium 3.9 Chloride 104 Carbon Dioxide 24 BUN 5 L Creatinine 0.80 Estimated GFR > 60.0 BUN/Creatinine Ratio 6.3 Glucose 105 H Calcium 9.0 Assessment & Plan Assessment and plan (1) Perforated diverticulum: Current visit: Yes Status: Acute (2) Morbid obesity with BMI of 50.0-59.9, adult: Current visit: Yes Status: Acute (3) Leukocytosis: Current visit: Yes Status: Acute Assessment & Plan narrative: 38 yo woman HD 2 admitted with acute diverticulitis with focal perforation in the setting of morbid obesity. She has been on zosyn, and WBC came down yesterday, but is back up to 13 today, with increased pain and nausea. Plan: increase zosyn to 4.5gm q6 continue clear diet and IV fluids advance to fulls as tolerated ambulate as tolerated repeat labs in 24 hours, or sooner if fever spike or change in vitals consider repeat CT scan if increasing leukocytosis on 24 hour interval labs Time Spent With Patient Time with patient: 25 - 35 minutes Quality VTE Deep Vein Thrombosis/Pulmonary Embolism Present on Admission: No
--- NOTE | 2019-04-27 12:55 | PC.NURSE ---
Transfer Note Transferred from room 106 to room 216 via wheelchair. All belongings with pt including cell phone and clothing. Report given to Mary KING.
--- NOTE | 2019-04-27 13:36 | PC.NURSE ---
TOLERATED CLEAR LIQUID LUNCH, SENSITIVE TO SMELLS, BROTH TO SALTY AND DIDN'T LIKE SMELL. OFFERED FULL LIQUID ITEMS PER OK BY DR. HICKMAN. DECLINES AT THIS TIME. AMBULATED IN HALLS. OFFERED NYSTATIN FOR RASH, DECLINES NEED FOR SAME AT THIS TIME.
[2019-04-27] MEDS: PIPERACILLIN-TAZO 4.5 GM/100 ML FROZ.PIGGY IV ×2 (14:14→20:39)
--- NOTE | 2019-04-27 14:28 | CM.DPC ---
DCP Cont: Met with patient in her room, introduced self and role. Patient s pleasant, alert and oriented. She has been walking in the hallway. She lives alone on [address], [place] confirmed that she will be available if needed when she goes home. 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 She stated that she had met up with surgeon, and they are advancing her diet. She mentioned her white count was a little elevated, will be keeping her another day. Patient is hopeful that she can discharge home tomorrow. P: DCP to continue to follow. Patient should be able to go home when she is medically stable. Michelle Gutierrez RN/Director Of Physical Education
[2019-04-27] MEDS: ACETAMINOPHEN 325 MG TABLET 650 MG PO (19:32)
[2019-04-27] MEDS: SERTRALINE 50 MG TABLET 150 MG PO (20:39)
[2019-04-27] MEDS: PANTOPRAZOLE 20 MG TABLET PO (20:39)
--- NOTE | 2019-04-27 22:40 | PC.NURSE ---
Patient ambulated independently multiple times. Complaints of reflux and headache, received orders from MD for Protonix and Tylenol. No complaints of nausea. Currently in bed, call light within reach.
[2019-04-28] VITALS (12 sets, daily range): BP systolic 136–153; BP diastolic 73–99; PULSE 78–88; RESP 14–17; TEMP 36.2–37.1; O2SAT 97–100
[2019-04-28] MEDS: PIPERACILLIN-TAZO 4.5 GM/100 ML FROZ.PIGGY IV ×4 (03:10→20:24)
[2019-04-28] MEDS: SODIUM CHLORIDE 0.9% 1,000 ML 125 ML IV ×2 (05:15→16:00)
[2019-04-28] MEDS: PANTOPRAZOLE 20 MG TABLET PO ×2 (05:19→20:25)
[2019-04-28 05:27] LABS: Add Manual Diff / Slide Review NO; Basophils Absolute Auto 100 /uL (0-100); Basophils Percent Auto 0.5 % (0-2); Eosinophils Absolute Auto 200 /uL (0-450); Eosinophils Percent Auto 1.3 % (2-4); Hemoglobin 12.8 g/dL (12.0-16.0); Lymphocytes Absolute Auto 1700 /uL (1100-4500); Lymphocytes Percent Auto 12.3 % (25-40); Mean Corpuscular HGB Conc 33.7 % (30-36); Mean Corpuscular Hemoglobin 28.1 PG (26-34); Mean Corpuscular Volume 83.6 fL (80-100); Monocytes Absolute Auto 1000 /uL (0-900); Monocytes Percent Auto 7.2 % (3-14); Neutrophils Absolute Auto 11000 /uL (1500-7000); Neutrophils Percent Auto 78.7 % (50-75); Platelet Count 503 X10^3/uL (150-400); Red Blood Cell Count 4.54 X10^6/uL (4.0-5.2); Red Cell Distribution Width 14.7 % (11.6-14.8)
[2019-04-28 05:33] LABS: Calcium 9.5 mg/dL (8.4-10.2); Carbon Dioxide 28 mmol/L (22-32); Chloride 102 mmol/L (98-107); Estimated Glomerular Filt Rate > 60.0 mL/min (>60); Glucose 119 mg/dL (70-100); HEMOLYSIS < 15 (0-50); Potassium 3.7 mmol/L (3.4-5.1); Sodium 141 mmol/L (137-145)
[2019-04-28 05:37] LABS: BUN Creatinine Ratio 2.5 (6-22); Blood Urea Nitrogen 2 mg/dL (7-17)
[2019-04-28] MEDS: ONDANSETRON 4 MG/2 ML INJ IV ×2 (08:25→23:23)
[2019-04-28] MEDS: ENOXAPARIN 40 MG/0.4 ML SYRINGE SUBCUT ×2 (08:26→20:25)
--- NOTE | 2019-04-28 08:42 | DI.CT.S_ITS ---
PROCEDURE: CT ABDOMEN PELVIS W CON INDICATIONS: diverticulitis, increasing WBC on IV abx TECHNIQUE: After the administration of intravenous contrast, 5 mm thick sections acquired from the diaphragm to the symphysis. 5 mm coronal and sagittal reformats were acquired. For radiation dose reduction, the following was used: automated exposure control, adjustment of mA and/or kV according to patient size. COMPARISON: [facility], CT, CT ABDOMEN PELVIS W CON, 04/25/2019, 17:32. FINDINGS: Image quality: Excellent. ABDOMEN: Lung bases: Lung bases are clear. Heart size is normal. Solid organs: Liver is normal in size and enhancement. No focal lesion. Gallbladder is unremarkable. Biliary system is non dilated. Pancreas enhances normally. Spleen is normal in size and enhancement. No adrenal nodules. Kidneys demonstrate normal size and enhancement, without hydronephrosis. Peritoneum and bowel: There is slight interval increase in the inflammatory change in the left lower quadrant due to acute diverticulitis, (). The extraluminal gas is now more confluent and there is fluid tracking along the left paracolic gutter. There is also increased fluid in the pelvis. No drainable fluid collection at this time. The left ureter are is at the medial aspect of the inflammatory change and is not dilated. No hydronephrosis. A few scattered colonic diverticuli. Inflammatory change adjacent to loops of small bowel. No dilated loops of bowel to suggest obstruction. Nodes and vessels: No retroperitoneal or mesenteric adenopathy by size criteria. Small periaortic lymph node likely reactive. Aorta and inferior vena cava are normal in size. No portal venous gas. No air under the diaphragm. Miscellaneous: No ventral hernias. Right subcutaneous abdominal wall injection sites. PELVIS: Genitourinary: Bladder is mostly decompressed. Miscellaneous: No inguinal hernias or adenopathy. Bones: No suspicious bony lesions. No vertebral body compression fractures. IMPRESSION: Moderate subacute sigmoid colon diverticulitis. Mild increase in inflammatory change without drainable abscess at this time. Small foci of extraluminal gas is more confluent. Small volume of free fluid in the pelvis, increased. No bowel obstruction. Dictated by: Toby Renee M.D. on 04/28/2019 at 10:17 Approved by: Toby Renee M.D. on 04/28/2019 at 10:28
--- NOTE | 2019-04-28 08:45 | PM.PN.1 ---
Subjective Subjective Date Patient Seen: 04/28/19 Time Patient Seen: 08:45 Interval history: No acute events overnight. Pt says she feels better. Vomited this morning, says it was from nerves. Exam Vital Signs (past 8 hours): - 04/28/19 04:30 04/28/19 05:40 Temperature 98.8 F Pulse Rate 78 Respiratory Rate 16 Blood Pressure 141/84 H Pulse Oximetry 99 99 Oxygen Delivery Method Room Air Oxygen Flow Rate 0 Narrative Exam Narrative: General-resting comfortably, in no distress, appears stated age, morbidly obese female HEENT-moist mucous membranes, no scleral icterus Neck-supple, no lymphadenopathy Chest- non labored respirations, non tachypneic, breathing comfortably on room air Cardiac-regular rate no peripheral edema Abdomen-soft, obese, nontender : flanks non tender Extremities-warm, well perfused Neurological-alert and oriented, no focal deficits Objective Labs Result Diagrams: 04/28/19 05:10 04/28/19 05:10 Labs: Laboratory Results - last 24 hr 04/28/19 04/28/19 05:10 05:10 WBC 14.0 H RBC 4.54 Hgb 12.8 Hct 38.0 MCV 83.6 MCH 28.1 MCHC 33.7 RDW 14.7 Plt Count 503 H Neut % (Auto) 78.7 H Lymph % (Auto) 12.3 L [place] % (Auto) 7.2 Eos % (Auto) 1.3 L Baso % (Auto) 0.5 Neut # (Auto) 18249 H Lymph # (Auto) 1700 [place] # (Auto) 1000 H Eos # (Auto) 200 Baso # (Auto) 100 Sodium 141 Potassium 3.7 Chloride 102 Carbon Dioxide 28 BUN 2 L Creatinine 0.80 Estimated GFR > 60.0 BUN/Creatinine Ratio 2.5 L Glucose 119 H Calcium 9.5 Assessment & Plan Assessment and plan (1) Leukocytosis: Current visit: Yes Status: Acute (2) Morbid obesity with BMI of 50.0-59.9, adult: Current visit: Yes Status: Acute (3) Perforated diverticulum: Current visit: Yes Status: Acute (4) No history of previous surgery: Current visit: Yes Status: Chronic (5) Depression: Current visit: Yes Status: Chronic Assessment & Plan narrative: Increasing WBC in spite of increased Abx coverage. Tenderness improved. Will send UA to rule out UTI, rescan to rule out abscess. clear diet CT abdomen/pelvis with IV contrast, NO PO CONTRAST follow up after the above Time Spent With Patient Time with patient: 25 - 35 minutes Quality VTE Deep Vein Thrombosis/Pulmonary Embolism Present on Admission: No
--- NOTE | 2019-04-28 11:08 | PC.NURSE ---
AM NOTE - pt is up to dangle position, holding emesis bag, has approx 100ml clear in bag, reports no abd pain or nausea now, Dr. Davey in and pt diet changed back to clear liq, pt taken for f/u CT scan this am, ambul hallway indep, gait steady, discussed zofran and given 4mg iv, states no return emesis.
[2019-04-28] MEDS: POLYETHYLENE GLYCOL 3350 17 GM POWD.PACK 238 GM PO (17:10)
[2019-04-28] MEDS: SERTRALINE 50 MG TABLET 150 MG PO (20:25)
--- NOTE | 2019-04-28 23:30 | PC.NURSE ---
pt denied pain or nausea. IVF. ambulated in hallways. refused scds. pt drinking her bowel prep cocktail. call light in reach. voiding and eliminating without difficulty. btx4 active.
[2019-04-29] VITALS (11 sets, daily range): BP systolic 120–146; BP diastolic 70–89; PULSE 67–87; RESP 14–18; TEMP 36–36.7; O2SAT 95–100
[2019-04-29] MEDS: SODIUM CHLORIDE 0.9% 1,000 ML 125 ML IV ×2 (00:59→10:11)
[2019-04-29] MEDS: PIPERACILLIN-TAZO 4.5 GM/100 ML FROZ.PIGGY IV ×3 (02:59→14:49)
--- NOTE | 2019-04-29 05:50 | PC.NURSE ---
Pt doing well. Reported some nausea at very start of shift around 2330, zofran given. Pt finished her Miralax and gatorade bowel prep; states her stool is becoming more clear. Independent in room; frequent trips to the bathroom NS@125mL/hr
[2019-04-29 06:03] LABS: Calcium 8.8 mg/dL (8.4-10.2); Carbon Dioxide 27 mmol/L (22-32); Chloride 102 mmol/L (98-107); Estimated Glomerular Filt Rate > 60.0 mL/min (>60); Glucose 115 mg/dL (70-100); HEMOLYSIS < 15 (0-50); Potassium 3.1 mmol/L (3.4-5.1); Sodium 138 mmol/L (137-145)
[2019-04-29 06:04] LABS: BUN Creatinine Ratio 2.9 (6-22); Blood Urea Nitrogen 2 mg/dL (7-17)
[2019-04-29 06:13] LABS: Add Manual Diff / Slide Review NO; Basophils Absolute Auto 100 /uL (0-100); Basophils Percent Auto 0.5 % (0-2); Eosinophils Absolute Auto 200 /uL (0-450); Eosinophils Percent Auto 1.7 % (2-4); Hematocrit 34.5 % (36-46); Hemoglobin 11.5 g/dL (12.0-16.0); Lymphocytes Absolute Auto 1500 /uL (1100-4500); Lymphocytes Percent Auto 11.9 % (25-40); Mean Corpuscular HGB Conc 33.3 % (30-36); Monocytes Absolute Auto 1100 /uL (0-900); Monocytes Percent Auto 8.7 % (3-14); Neutrophils Absolute Auto 9600 /uL (1500-7000); Neutrophils Percent Auto 77.2 % (50-75); Platelet Count 443 X10^3/uL (150-400); Red Blood Cell Count 4.11 X10^6/uL (4.0-5.2); Red Cell Distribution Width 14.5 % (11.6-14.8); White Blood Cell Count 12.4 X10^3/uL (4.5-11.0)
[2019-04-29] MEDS: PANTOPRAZOLE 20 MG TABLET PO ×2 (06:43→20:36)
[2019-04-29] MEDS: ONDANSETRON 4 MG/2 ML INJ IV (08:43)
[2019-04-29] MEDS: ENOXAPARIN 40 MG/0.4 ML SYRINGE SUBCUT ×2 (08:45→20:33)
--- NOTE | 2019-04-29 08:52 | PC.NURSE ---
Nurse Note Patient alert and oriented. Reports nausea with dry heaving but no emesis. Ordered anti-emetic administered. Patient denies CP, SOB or any other difficulty other than the above. Care is ongoing.
[2019-04-29 10:42] LABS: Procalcitonin < 0.05 ng/mL (<0.5)
[2019-04-29] MEDS: POTASSIUM CHLORIDE 20 MEQ/15 ML UDC 40 MEQ PO (11:08)
--- NOTE | 2019-04-29 13:35 | CM.DPC ---
DCP Cont: Per Surgeon yesterday, pt not stable for discharge yet and currently on bowel prep to clear her colon and monitor to confirm no bowel getting into her cavity and will follow closely to determine if further surgery needed. Waiting for Surgeon recommendations later today after rounding on pt. Per RN, pt has been ambulating the halls and still reporting some nausea and dry heaves. Plan: DCP to follow closely to determine if further surgical intervention needed or if pt improves with conservative tx. Pt has supportive mother bedside. Francine Brandt MSW
--- NOTE | 2019-04-29 15:28 | P.PN_ITS ---
Subjective Subjective Date Patient Seen: 04/29/19 Time Patient Seen: 15:28 Interval history: Continued left lower quadrant pain no nausea or vomiting. Tolerating some clear liquid diet. Afebrile. Positive flatus and bowel movement. Exam Vital Signs (past 8 hours): - 04/29/19 08:50 04/29/19 10:00 04/29/19 11:38 Temperature 98.0 F 98.1 F Pulse Rate 67 72 Respiratory Rate 16 16 Blood Pressure 129/75 139/82 Pulse Oximetry 100 98 98 04/29/19 15:24 Temperature 96.8 F L Pulse Rate 71 Respiratory Rate 18 Blood Pressure 131/81 Pulse Oximetry 96 Oxygen Delivery Method Room Air Oxygen Flow Rate 0 Narrative Exam Narrative: General adult female alert oriented no acute distress Abdomen left lower quadrant focally tender to palpation no diffuse peritonitis. Nondistended obese Objective Labs Result Diagrams: 04/29/19 05:25 04/29/19 05:25 Labs: Laboratory Results - last 24 hr 04/29/19 04/29/19 04/29/19 05:25 05:25 05:25 WBC 12.4 H RBC 4.11 Hgb 11.5 L Hct 34.5 L MCV 84.0 MCH 28.0 MCHC 33.3 RDW 14.5 Plt Count 443 H Neut % (Auto) 77.2 H Lymph % (Auto) 11.9 L [place] % (Auto) 8.7 Eos % (Auto) 1.7 L Baso % (Auto) 0.5 Neut # (Auto) 9600 H Lymph # (Auto) 1500 [place] # (Auto) 1100 H Eos # (Auto) 200 Baso # (Auto) 100 Sodium 138 Potassium 3.1 L Chloride 102 Carbon Dioxide 27 BUN 2 L Creatinine 0.70 Estimated GFR > 60.0 BUN/Creatinine Ratio 2.9 L Glucose 115 H Calcium 8.8 Procalcitonin < 0.05 Assessment & Plan Assessment & Plan narrative: This 38-year-old female admitted to the hospital for the past 4 days with acute uncomplicated diverticulitis. In the interval she underwent a repeat CT of the abdomen pelvis which demonstrates slightly worsening of her sigmoid diverticulitis as evidence by further stranding and fluid in the area however there's no drainable abscess or gross free air. White blood cell count remains mildly elevated at 12 although she is afebrile with normal procalitonin with focal peritonitis no evidence diffuse peritonitis. I had a long discussion with patient and her mother regarding her clinical condition and our management options from here. She is failing to show significant improvement our current course of IV Zosyn. There are no emergent indications for an operation which I described to them is either a sigmoid resection with diverting ileostomy or Satinder's procedure. I recommended that we modify her antibiotics to Meropenem and IV Flagyl for better coverage of her colonic bacteria. If she fails to improve on optimize course of antibiotic therapy than surgical intervention will be necessary. Her questions have been answered and she's in agreement with this plan. Quality VTE Deep Vein Thrombosis/Pulmonary Embolism Present on Admission: No
[2019-04-29] MEDS: MEROPENEM 2 GM in SODIUM CHLORIDE 0.9% 100 ML 200 ML IV ×2 (16:20→23:36)
[2019-04-29] MEDS: metroNIDAZOLE 500 MG/100 ML PIGGYBACK 100 MG IV (16:39)
[2019-04-29] MEDS: SERTRALINE 50 MG TABLET 150 MG PO (20:33)
[2019-04-30] VITALS (10 sets, daily range): BP systolic 126–137; BP diastolic 58–83; PULSE 70–88; RESP 16–20; TEMP 36.4–36.6; O2SAT 94–99
[2019-04-30] MEDS: metroNIDAZOLE 500 MG/100 ML PIGGYBACK 100 MG IV ×4 (00:21→22:47)
--- NOTE | 2019-04-30 01:09 | PC.NURSE ---
Patient is independent in the room and is refusing the SCD's. The patient was educated on the use/benefits of wearing the SCD's ie. prevention of blod clot accumulation. The patient was also educated on exercises such as foot/ankle pumps while in bed.
[2019-04-30] MEDS: MEROPENEM 2 GM in SODIUM CHLORIDE 0.9% 100 ML 200 ML IV ×2 (06:31→14:38)
[2019-04-30] MEDS: PANTOPRAZOLE 20 MG TABLET PO ×2 (06:35→20:34)
[2019-04-30] MEDS: SODIUM CHLORIDE 0.9% 1,000 ML 125 ML IV (07:02)
--- NOTE | 2019-04-30 09:06 | PM.PN.1 ---
Subjective Subjective Date Patient Seen: 04/30/19 Time Patient Seen: 09:06 Interval history: No acute overnight events. Minimal and resolving left lower quadrant pain. No nausea vomiting. Tolerating clear liquid diet. No fever. Exam Vital Signs (past 8 hours): - 04/30/19 02:00 04/30/19 05:07 04/30/19 06:00 Temperature 97.8 F Pulse Rate 72 Respiratory Rate 18 Blood Pressure 134/83 Pulse Oximetry 95 94 94 04/30/19 07:20 Temperature 97.6 F Pulse Rate 70 Respiratory Rate 16 Blood Pressure 134/82 Pulse Oximetry 99 Oxygen Delivery Method Room Air Oxygen Flow Rate 0 Narrative Exam Narrative: General adult female alert oriented no acute distress Abdomen obese minimal wound tender left lower quadrant improved from yesterday no peritonitis Objective Labs Result Diagrams: 04/29/19 05:25 04/29/19 05:25 Labs: Laboratory Results - last 24 hr 04/29/19 05:25 Procalcitonin < 0.05 Assessment & Plan Assessment & Plan narrative: 38-year-old female a admitted for acute uncomplicated diverticulitis. Her antibiotics were changed yesterday from Zosyn to meropenem and Flagyl with significant improvement in her abdominal pain. Today she has essentially no left lower quadrant tenderness she has been afebrile. -regular diet if worsening pain clear liquid diet -discontinue IV fluids -SCDs Lovenox for VT prophylaxis. -if tolerates regular diet today will attempt to transition to oral antibiotics tomorrow Quality VTE Deep Vein Thrombosis/Pulmonary Embolism Present on Admission: No
[2019-04-30] MEDS: POTASSIUM CHLORIDE 20 MEQ TAB 40 MEQ PO (09:22)
[2019-04-30] MEDS: ENOXAPARIN 40 MG/0.4 ML SYRINGE SUBCUT ×2 (09:23→20:34)
[2019-04-30] MEDS: KETOROLAC 30 MG/ML VIAL IV (09:24)
--- NOTE | 2019-04-30 11:52 | PC.NURSE ---
Addendum entered by Chidi Nicholas R.N. 04/30/19 14:58: Patient tolerating general diet well. Denies complaints. Care continues. Original Note: Nurse Note Patient reports feeling better this morning, denies N/V or abdominal pain on the level of yesterday. Diet advanced per orders. Care is ongoing.
--- NOTE | 2019-04-30 16:07 | CM.DPC ---
Addendum entered by Kaylyn Candelario LPN 04/30/19 16:10: Admission status was noted to change from OBS to INPT: as of 04/27 Original Note: DCP: continued: case received, EMR reviewed for last few days. Discussed in Team Rounds. Dr. Naik was here today, notes pt's improvement. She is tolerating clear liquid diet and he confirms her LLQ pain is resolving. He anticipates that if pt is able to tolerate advancing to a regular diet he will transition her to oral antibiotics tomorrow.. Pt is up an ambulating in halls. P: home when stable for same.
[2019-04-30] MEDS: SERTRALINE 50 MG TABLET 150 MG PO (20:35)
--- NOTE | 2019-04-30 21:56 | PC.NURSE ---
Pt in good spirits this shift, showered, ambulated independently hallway many times, denied pain, nausea and did not have diarrhea.
[2019-05-01] VITALS (7 sets, daily range): BP systolic 121–148; BP diastolic 55–91; PULSE 70–81; RESP 16–18; TEMP 36.5–37.1; O2SAT 96–99
[2019-05-01] MEDS: MEROPENEM 2 GM in SODIUM CHLORIDE 0.9% 100 ML 200 ML IV ×2 (00:01→08:12)
[2019-05-01 05:36] LABS: Add Manual Diff / Slide Review NO; Basophils Absolute Auto 100 /uL (0-100); Basophils Percent Auto 0.7 % (0-2); Eosinophils Absolute Auto 300 /uL (0-450); Eosinophils Percent Auto 2.8 % (2-4); Hematocrit 36.2 % (36-46); Hemoglobin 12.2 g/dL (12.0-16.0); Lymphocytes Absolute Auto 2100 /uL (1100-4500); Lymphocytes Percent Auto 23.6 % (25-40); Mean Corpuscular HGB Conc 33.7 % (30-36); Mean Corpuscular Hemoglobin 28.2 PG (26-34); Mean Corpuscular Volume 83.7 fL (80-100); Monocytes Absolute Auto 800 /uL (0-900); Monocytes Percent Auto 8.5 % (3-14); Neutrophils Absolute Auto 5800 /uL (1500-7000); Neutrophils Percent Auto 64.4 % (50-75); Platelet Count 497 X10^3/uL (150-400); Red Blood Cell Count 4.32 X10^6/uL (4.0-5.2); Red Cell Distribution Width 14.6 % (11.6-14.8); White Blood Cell Count 9.1 X10^3/uL (4.5-11.0)
[2019-05-01] MEDS: PANTOPRAZOLE 20 MG TABLET PO (06:42)
[2019-05-01] MEDS: metroNIDAZOLE 500 MG/100 ML PIGGYBACK 100 MG IV (07:07)
[2019-05-01] MEDS: SODIUM CHLORIDE 0.9% FLUSH 10 ML IV (07:07)
--- NOTE | 2019-05-01 10:13 | P.DS_ITS ---
History of Present Illness History of Present Illness Chief complaint: sent by Doctor,dark urine,pain with eating Narrative: This is 38-year-old female with acute uncomplicated diverticulitis. The past 4 days she has been feeling pressure in her left lower quadrant associated with some nausea malaise anorexia. And in the emergency room she underwent a CT which demonstrated sigmoid diverticulitis with a micro perforation small amount of free fluid and stranding no abscess. White count 13 on admission urine studies notable for bacteria and leukocyte Estrace sent for culture.. She has never had a prior episode of diverticulitis however she has multiple family members with various degrees of diverticular disease. No history of colon cancer in first-degree relatives. She has never undergone colonoscopy. Past medical history is significant for super morbid obesity and depression. No prior abdominal surgeries. Discharge Providers Provider Date of admission: 04/27/19 15:23 Discharge Date: 05/01/19 Primary care physician: Lloyd Hudson MD Discharge provider: Jean Naik MD Summary Hospital Course Discharge Diagnosis: Acute uncomplicated diverticulitis. Hospital Course: This is a 38-year-old female who was admitted to the hospital with right-sided abdominal pain found have acute uncomplicated diverticulitis. The CT demonstrated a small micro perforation of the sigmoid colon no abscess no gross free air. She was managed conservatively with antibiotic therapy, initially Zosyn. Her abdominal pain slightly worsened after for several days therapy and her therapy was changed to meropenem and Flagyl. She had complete resolution of her abdominal pain and then tolerated a regular diet. On the date of discharge 05/01 patient is doing well. She has tolerated regular diet has resolution of her abdominal pain no nausea vomiting passing stool and flatus. My preference is to keep patient another day in the hospital for since she has just been transitioned to oral antibiotics however she insists that the she wants to go home at this time. Status at Discharge Cognitive/behavioral status at discharge: oriented Functional status at discharge: independent ambulation Overall status at discharge: patient is back to baseline Time Spent with Patient Time spent: Greater than 30 minutes Exam Vital Signs (past 8 hours): - 05/01/19 04:00 05/01/19 05:00 05/01/19 07:46 Temperature 98.3 F 98.2 F Pulse Rate 81 81 Respiratory Rate 16 18 Blood Pressure 143/87 H 148/88 H Pulse Oximetry 97 97 97 Oxygen Delivery Method Room Air Oxygen Flow Rate 0 Narrative Exam Narrative: Exam Narrative: General morbidly obese female, no acute distress HEENT-moist mucous membranes, no scleral icterus Neck-supple, no lymphadenopathy Chest- non labored respirations Cardiac-regular rate no peripheral edema Abdomen-soft, obese, nontender : flanks non tender Extremities-warm, well perfused Neurological-alert and oriented, no focal deficits Objective Labs Result Diagrams: 05/01/19 05:10 04/29/19 05:25 Labs: Laboratory Results - last 24 hr 05/01/19 05:10 WBC 9.1 RBC 4.32 Hgb 12.2 Hct 36.2 MCV 83.7 MCH 28.2 MCHC 33.7 RDW 14.6 Plt Count 497 H Neut % (Auto) 64.4 Lymph % (Auto) 23.6 L [place] % (Auto) 8.5 Eos % (Auto) 2.8 Baso % (Auto) 0.7 Neut # (Auto) 5800 Lymph # (Auto) 2100 [place] # (Auto) 800 Eos # (Auto) 300 Baso # (Auto) 100 Discharge Plan Discharge Plan Patient Disposition: Home Discharge comment: Take all of your antibiotics as directed until they are gone. Use a fiber supplement such as Metamucil or Benefiber twice daily. Drink plenty of fluid and keep yourself hydrated. Call [facility] to make a follow up appointment with Dr. Naik, and to schedule a colonoscopy in 8-12 weeks from the time your diverticulitis symptoms resolve. Discharge orders & Medications Prescriptions: New ciprofloxacin HCl 750 mg tablet 750 mg PO BID Qty: 28 RF: 0 metronidazole [Flagyl] 500 mg tablet 500 mg PO TID Qty: 42 RF: 0 Continued levonorgestrel-ethinyl estrad 0.15 mg-30 mcg (91) tablets,dose pack,3 month 1 tab PO QPM RF: 0 multivitamin Tablet 1 tab PO QPM RF: 0 cetirizine 10 mg Tablet 10 mg PO QPM RF: 0 ferrous sulfate 325 mg (65 mg iron) Tablet 325 mg PO QPM RF: 0 omeprazole 20 mg Capsule,Delayed Release(Dr/Ec) 20 - 40 mg PO QPM RF: 0 sertraline 50 mg Tablet 150 mg PO QPM RF: 0 cholecalciferol (vitamin D3) [Vitamin D3] 1,000 unit Capsule 1,000 unit PO QPM RF: 0 Follow up/Referrals: Jean Naik MD [Physician] - Lloyd Hudson MD [Primary Care Provider] - Diet/Activity/Treatments Diet: Diet as Tolerated Skin/Wound/Dressing Care Report to your healthcare provider any signs of infection, such as:: chills, fever, night sweats, increased pain and unusual drainage Visit Report/Discharge Packet Instructions: DI for Diverticulitis Visit Report Forms: Patient Portal/API, Stroke Signs & Symptoms Discharge Data Primary Care Provider: Lloyd Hudson Quality VTE Deep Vein Thrombosis/Pulmonary Embolism Present on Admission: No
[2019-05-01] MEDS: metroNIDAZOLE 500 MG TABLET PO (13:52)
--- NOTE | 2019-05-01 14:34 | PC.NURSE ---
AM NOTE - pt moving independently in room, denies abd pain, states has underlying nausea at times due to anxiety, hoping to dc home today, declines any anti-emetic, md in later am and pt to dc home, after lunch katarina, iv dc'd, given po flagyl prior to dc, scripts were sent electronically to [facility], given priority for [address], all belongings gathered by mom, including cell phones and chargers, clothing, reviewed the dc instructions with pt and mom, tsf to wc and escorted to car.
== END 2019-05-01 14:20 | disposition home or self-care (01) | DRG 391 ==
LOC: ED 18:23 → AC 18:38 → ICU 19:42 → AC 04-27 10:20
PROVIDERS: Emergency Medicine; Admitting Provider Surgery; Emergency Provider Internal Medicine; PCP Family Medicine; Visit Provider Surgery
DX: K57.20 Diverticulitis of large intestine with perforation and abscess without bleeding (principal); K65.9 Peritonitis, unspecified; Z68.43 Body mass index [BMI] 50.0-59.9, adult; E66.01 Morbid (severe) obesity due to excess calories; F32.9 Major depressive disorder, single episode, unspecified
CPT/HCPCS: 36415; 74177; 80048; 80053; 81003; 81015; 81025; 82550; 83690; 84145; 85025; 85610; 85730; 87086; 87797; 96361; 96374; 96375; 99231; 99238; 99284; G0378; C9113; J1650; J1885; J2185; J2405; J2543; Q9967

== ENCOUNTER 2019-10-21 06:36 | Day surgery (SDC) | payer BC, SELFPAY ==
[2019-10-21] VITALS (7 sets, daily range): BP systolic 111–133; BP diastolic 58–89; PULSE 84–109; RESP 16–20; TEMP 36.2–36.3; O2SAT 93–99; BMI 52.5
[2019-10-21] MEDS: LACTATED RINGERS 1,000 ML 42 ML IV (07:30)
--- NOTE | 2019-10-21 07:41 | PM.HP.1 ---
History of Present Illness History of Present Illness Date Patient Seen: 10/21/19 Time Patient Seen: 07:41 Chief complaint: [id number] Narrative: This is a 39-year-old woman has had several bouts of uncomplicated diverticulitis. She was last seen in the hospital April 2019 for an episode of uncomplicated sigmoid diverticulitis. She is here for a screening colonoscopy. They have never had any previous examination for such. No personal or family history of colon cancer. On further history denies any recent gastrointestinal symptoms. No nausea, vomiting, abdominal pain, loss of appetite, unexplained weight loss, change in bowel habits, diarrhea, constipation, melena, hematochezia, or bright red blood per rectum. Patient History Medical History Depression (Chronic) Obesity (Acute) Surgical History No history of previous surgery (Chronic) Family & Social History Social History: household members none Tobacco & Substance use: Smoking Status Never smoker alcohol intake never alcohol intake frequency holiday/special occasion Substance Use Type does not use Meds Home Medications and Allergies Home Medications Medication Instructions Recorded Confirmed Type cetirizine 10 mg PO QPM 04/25/19 10/21/19 History levonorgestrel-ethinyl estrad 1 tab PO QPM 04/25/19 10/21/19 History omeprazole 20 - 40 mg PO QPM 04/25/19 10/21/19 History sertraline 150 mg PO QPM 04/25/19 10/21/19 History Allergies Allergy/AdvReac Type Severity Reaction Status Date / Time No Known Drug Allergies Allergy Verified 10/21/19 07:12 Review of Systems Review of Systems Narrative: A 10 point review of systems is negative except as noted in the HPI Exam Vital Signs (past 8 hours): - 10/21/19 07:29 Temperature 97.1 F L Pulse Rate 109 H Respiratory Rate 20 Blood Pressure 133/89 Pulse Oximetry 99 Oxygen Delivery Method Room Air Narrative Exam Narrative: General-no acute distress, morbidly obese female HEENT-moist mucous membranes, no scleral icterus Neck-supple, no lymphadenopathy Chest- non labored respirations, clear to auscultation bilaterally Cardiac-regular rate no peripheral edema Abdomen-soft, nontender, non distended Extremities-warm, well perfused Neurological-alert and oriented, no focal deficits Assessment & Plan Assessment and plan (1) Diverticulitis: Status: Acute Assessment & Plan narrative: The patient requires colorectal screening and colonoscopy is recommended following several episodes of uncomplicated sigmoid diverticulitis. This. Technical details were discussed. Risks, benefits, alternatives explained. Risks including but not limited to myocardial infarction, aspiration, bleeding, pain, missed lesion, incomplete examination, need for further radiographic studies, colonic perforation, and need for major abdominal surgery were discussed. All questions were answered to their satisfaction, and they are in agreement with this plan. COVID-19 COVID-19 status: Negative
[2019-10-21] MEDS: fentaNYL 250 MCG/5 ML INJ IV ×4 (07:53→08:01)
[2019-10-21] MEDS: MIDAZOLAM 5 MG/5 ML VIAL IV ×5 (07:53→07:58)
[2019-10-21] MEDS: ONDANSETRON 4 MG/2 ML INJ IV (07:53)
--- NOTE | 2019-10-21 08:13 | PM.OP.ENDO ---
Operative Date/Time/Diagnoses Date of procedure: 10/21/19 Time of procedure: 08:13 Pre-op diagnosis: Diverticulitis Post-op diagnosis: same Procedure & Clinicians Study performed: Colonoscopy Same procedure as scheduled: Yes Indications: 39-year-old female with multiple episodes of uncomplicated sigmoid diverticulitis presents for routine screening Surgeon: Jean Naik Procedure Notes SCOAP/Timeout: Performed Procedure in detail: Patient placed in left lateral decubitus position. Time out was performed. Procedural sedation was administered with Versed and Fentanyl. A rectal exam demonstrated no external hemorrhoids no internal masses. Colonoscopy scope was placed into the rectum and advanced through the colon to the cecum. The ileocecal valve was identified. The scope was then slowly withdrawn examining colon thoroughly in all directions. The colonoscopy was notable for the following 1. Sigmoid diverticulosis, mild 2. Quality of prep excellent 3. Grade 1 internal hemorrhoids Scope withdrawal time: 6 Sedation minutes: 20 Findings: diverticulosis and internal hemorrhoids Specimen(s): none sent Complications: none Impression: Diverticulosis Post-procedure Recommendations: Colonscopy in 10 years and High fiber diet Disposition: same day surgery
== END 2019-10-21 08:55 | disposition home or self-care (01) ==
PROVIDERS: PCP Family Medicine; Referring Provider Surgery; Visit Provider Surgery
PROC: 0DJD8ZZ Inspection of Lower Intestinal Tract, Via Natural or Artificial Opening Endoscopic (ICD-10-PCS; CPT 45378; principal; 2019-10-21 07:45)
DX: Z12.11 Encounter for screening for malignant neoplasm of colon (principal); F32.9 Major depressive disorder, single episode, unspecified; E66.9 Obesity, unspecified; Z87.19 Personal history of other diseases of the digestive system; K57.30 Diverticulosis of large intestine without perforation or abscess without bleeding; K64.0 First degree hemorrhoids
CPT/HCPCS: 45378; 99152; J2250; J2405; J3010

== ENCOUNTER 2020-08-20 13:34 | Emergency (ER) | payer BC, SELFPAY ==
[2020-08-20 13:47] VITALS: BP 166/103; PULSE 117; RESP 16; TEMP 37.4; O2SAT 99; BMI 52.2
[2020-08-20 14:11] LABS: Add Manual Diff / Slide Review NO; Basophils Absolute Auto 100 /uL (0-100); Basophils Percent Auto 0.6 % (0-2); Eosinophils Absolute Auto 100 /uL (0-450); Eosinophils Percent Auto 0.4 % (2-4); Hematocrit 40.2 % (36-46); Hemoglobin 13.4 g/dL (12.0-16.0); Lymphocytes Absolute Auto 1800 /uL (1100-4500); Lymphocytes Percent Auto 15.1 % (25-40); Mean Corpuscular HGB Conc 33.5 % (30-36); Mean Corpuscular Hemoglobin 27.6 PG (26-34); Mean Corpuscular Volume 82.6 fL (80-100); Monocytes Absolute Auto 600 /uL (0-900); Monocytes Percent Auto 5.4 % (3-14); Neutrophils Absolute Auto 9200 /uL (1500-7000); Neutrophils Percent Auto 78.5 % (50-75); Platelet Count 506 X10^3/uL (150-400); Red Blood Cell Count 4.86 X10^6/uL (4.0-5.2); Red Cell Distribution Width 15.4 % (11.6-14.8); White Blood Cell Count 11.7 X10^3/uL (4.5-11.0)
[2020-08-20 14:17] LABS: INR 1.1 (0.9-1.3); Prothrombin Time 12.2 SECONDS (10.1-12.7)
[2020-08-20 14:20] LABS: PTT Partial Thromboplastin Tim 34 SECONDS (26.4-36.2)
[2020-08-20 14:21] LABS: Alanine Aminotransferase 50 IU/L (<35); Albumin 4.5 g/dL (3.5-5.0); Albumin Globulin Ratio 1.2 (1.0-2.8); Alkaline Phosphatase 105 U/L (38-126); Aspartate Aminotransferase 48 IU/L (14-36); BUN Creatinine Ratio 11.4 (6-22); Bilirubin Total 0.8 mg/dL (0.2-1.3); Blood Urea Nitrogen 10 mg/dL (7-17); Calcium 9.6 mg/dL (8.4-10.2); Carbon Dioxide 24 mmol/L (22-32); Chloride 103 mmol/L (98-107); Estimated Glomerular Filt Rate > 60.0 mL/min (>60); Globulin 3.7 g/dL (1.7-4.1); Glucose 105 mg/dL (70-100); HEMOLYSIS < 15 (0-50); Lipase 69 U/L (23-300); Sodium 140 mmol/L (137-145); Total Protein 8.2 g/dL (6.3-8.2)
--- NOTE | 2020-08-20 15:46 | ED.ABDPAIN ---
HPI - Abdominal Pain General Chief Complaint: Abdominal Pain Stated Complaint: suspects diverticulitis Time Seen by Provider: 08/20/20 15:19 Source: patient Mode of arrival: Ambulatory Limitations: no limitations History of Present Illness HPI narrative: Patient is a 40-year-old female with history of diverticulitis and obesity presenting with right-sided pain. She says this started about 6 days ago but progressively got worse. She has a previously when she has had diverticulitis she has had abscesses and even required surgery. She went on a clear liquid diet to see if it would help unfortunately pain has gotten worse. She denies any fever or chills. She occasionally use feels nauseous no vomiting. MD complaint: abdominal pain Related Data Home Medications Medication Instructions Recorded Confirmed cetirizine 10 mg PO QPM 04/25/19 10/21/19 levonorgestrel-ethinyl estrad 1 tab PO QPM 04/25/19 10/21/19 omeprazole 20 - 40 mg PO QPM 04/25/19 10/21/19 sertraline 150 mg PO QPM 04/25/19 10/21/19 Previous Rx's Medication Instructions Recorded ciprofloxacin HCl [Cipro] 500 mg PO BID #14 tab 08/20/20 metronidazole [Flagyl] 500 mg PO Q8H #21 tab 08/20/20 ondansetron 4 mg PO Q8H PRN #10 tab 08/20/20 Allergies Allergy/AdvReac Type Severity Reaction Status Date / Time No Known Drug Allergies Allergy Verified 08/20/20 13:49 Review of Systems Review of Systems Narrative: GENERAL: Denies chills, fatigue, malaise, fever, sweats, travel HEENT: Denies sinus pain, ear pain, sore throat, difficulty swallowing, neck pain RESPIRATORY: Denies dyspnea, cough, wheezing, hemoptysis, sputum. CARDIOVASCULAR: Denies chest pain, palpitations, orthopnea, edema GASTROINTESTINAL: See HPI : Denies dysuria, frequency, incontinence, hematuria, urinary retention, flank pain. MUSCULOSKELETAL: Denies weakness, joint pain, or bony pain SKIN: No rash, no erythema, no pruritus NEUROLOGIC: Denies weakness, dizziness, headache, numbness, change in speech, confusion PSYCHIATRIC: No concerning psychosocial issues. 12 point review of systems is negative except for those stated above and HPI Patient History Medical History (Updated 08/20/20 @ 17:06 by Naomi Pizarro DO) Depression Obesity Surgical History No history of previous surgery Social History household members: none Smoking Status: Never smoker alcohol intake: never Smoking Status: Never smoker alcohol intake frequency: holidays/special occasions only Substance Use Type: does not use Exam Initial Vital Signs Initial Vital Signs: Vital Signs Temperature 99.4 F 08/20/20 13:47 Pulse Rate 117 H 08/20/20 13:47 Respiratory Rate 16 08/20/20 13:47 Blood Pressure 166/103 H 08/20/20 13:47 Pulse Oximetry 99 08/20/20 13:47 GENERAL: Alert 40-year-old female BMI 52 and in mild distress. HEENT: Head atraumatic,EOMI, pupils reactive, face symmetric, moist mucous membranes CARDIOVASCULAR: Regular rate and rhythm without murmurs, rubs or gallops. RESPIRATORY: Breath sounds equal bilaterally, no wheezes rales or rhonchi. ABDOMEN: Soft, tender right-sided pain, questionable positive Guerrero sign EXTREMITIES: Normal range of motion, no clubbing or edema. Neurovascularly intact NEUROLOGICAL: Alert and oriented x4.Normal gait and speech. Cranial nerves II through XII grossly intact. SKIN: Warm, dry, no laceration, no petechiae, no rashes or lesions. Course Orders Ordered: ED Orders 08/20/20 14:03 Complete Blood Count AUTO DIFF Stat Comprehensive Metabolic Panel Stat Lipase Stat Partial Thromboplastin Time Stat Prothrombin Time INR Stat 08/20/20 15:54 CT abdomen pelvis w con Stat US abdomen limited Stat 08/20/20 16:10 Urine Culture Stat Urine Microscopic Stat Discontinued Medications Sodium Chloride (Normal Saline 0.9%) 1,000 mls @ 1,000 mls/hr IV BOLUS ONE Stop: 08/20/20 16:53 Last Infusion: 08/20/20 17:37 Dose: 0 mls/hr Documented by: [email or web address] Admin: 08/20/20 16:35 Dose: 1,000 mls/hr Documented by: [email or web address] Ondansetron HCl (Ondansetron 4 Mg/2 Ml Inj) 4 mg IV NOW ONE Stop: 08/20/20 15:55 Last Admin: 08/20/20 16:15 Dose: 4 mg Documented by: [email or web address] Vital Signs Vital signs: Vital Signs - 8 hr 08/20/20 13:47 08/20/20 17:41 Temperature 99.4 F Pulse Rate 117 H 91 H Respiratory Rate 16 18 Blood Pressure 166/103 H 154/90 H Pulse Oximetry 99 98 MDM - Abdominal Pain Lab Data Attestation: I reviewed the patient's lab results. Result diagrams: 08/20/20 14:03 08/20/20 14:03 Labs: Lab Results 08/20/20 08/20/20 08/20/20 Range/Units 14:03 14:03 14:03 WBC 11.7 H (4.5-11.0) X10^3/uL RBC 4.86 (4.0-5.2) X10^6/uL Hgb 13.4 (12.0-16.0) g/dL Hct 40.2 (36-46) % MCV 82.6 (80-100) fL MCH 27.6 (26-34) PG MCHC 33.5 (30-36) % RDW 15.4 H (11.6-14.8) % Plt Count 506 H (150-400) X10^3/uL Neut % (Auto) 78.5 H (50-75) % Lymph % (Auto) 15.1 L (25-40) % Edwards % (Auto) 5.4 (3-14) % Eos % (Auto) 0.4 L (2-4) % Baso % (Auto) 0.6 (0-2) % Neut # (Auto) 9200 H (9966-2296) /uL Lymph # (Auto) 1800 (6358-6945) /uL Edwards # (Auto) 600 (0-900) /uL Eos # (Auto) 100 (0-450) /uL Baso # (Auto) 100 (0-100) /uL PT 12.2 (10.1-12.7) SECONDS INR 1.1 (0.9-1.3) APTT 34 (26.4-36.2) SECONDS Sodium 140 (137-145) mmol/L Potassium 4.0 (3.4-5.1) mmol/L Chloride 103 (98-107) mmol/L Carbon Dioxide 24 (22-32) mmol/L BUN 10 (7-17) mg/dL Creatinine 0.88 (0.52-1.04) mg/dL Estimated GFR > 60.0 (>60) mL/min BUN/Creatinine Ratio 11.4 (6-22) Glucose 105 H (70-100) mg/dL Calcium 9.6 (8.4-10.2) mg/dL Total Bilirubin 0.8 (0.2-1.3) mg/dL AST 48 H (14-36) IU/L ALT 50 H (<35) IU/L Alkaline Phosphatase 105 (38-126) U/L Total Protein 8.2 (6.3-8.2) g/dL Albumin 4.5 (3.5-5.0) g/dL Globulin 3.7 (1.7-4.1) g/dL Albumin/Globulin Ratio 1.2 (1.0-2.8) Lipase 69 (23-300) U/L Urine RBC (0-5/HPF) Urine WBC (0-5/HPF) Ur Squamous Epith Cells (0-5/HPF) Urine Bacteria (None) Urine Mucus (Negative) Ur Culture Indicated? Micro UA Comment 08/20/20 Range/Units 16:10 WBC (4.5-11.0) X10^3/uL RBC (4.0-5.2) X10^6/uL Hgb (12.0-16.0) g/dL Hct (36-46) % MCV (80-100) fL MCH (26-34) PG MCHC (30-36) % RDW (11.6-14.8) % Plt Count (150-400) X10^3/uL Neut % (Auto) (50-75) % Lymph % (Auto) (25-40) % Edwards % (Auto) (3-14) % Eos % (Auto) (2-4) % Baso % (Auto) (0-2) % Neut # (Auto) (5197-7379) /uL Lymph # (Auto) (8622-9771) /uL Edwards # (Auto) (0-900) /uL Eos # (Auto) (0-450) /uL Baso # (Auto) (0-100) /uL PT (10.1-12.7) SECONDS INR (0.9-1.3) APTT (26.4-36.2) SECONDS Sodium (137-145) mmol/L Potassium (3.4-5.1) mmol/L Chloride (98-107) mmol/L Carbon Dioxide (22-32) mmol/L BUN (7-17) mg/dL Creatinine (0.52-1.04) mg/dL Estimated GFR (>60) mL/min BUN/Creatinine Ratio (6-22) Glucose (70-100) mg/dL Calcium (8.4-10.2) mg/dL Total Bilirubin (0.2-1.3) mg/dL AST (14-36) IU/L ALT (<35) IU/L Alkaline Phosphatase (38-126) U/L Total Protein (6.3-8.2) g/dL Albumin (3.5-5.0) g/dL Globulin (1.7-4.1) g/dL Albumin/Globulin Ratio (1.0-2.8) Lipase (23-300) U/L Urine RBC 1-5/hpf (0-5/HPF) Urine WBC 1-5/hpf (0-5/HPF) Ur Squamous Epith Cells 1-5 /hpf (0-5/HPF) Urine Bacteria Moderate (10-30) H (None) Urine Mucus 1+ H (Negative) Ur Culture Indicated? Specimen cultured Micro UA Comment Kiley esterase + Point of care testing: Point of Care Testing Test Results Negative Urine Dip Bedside Urine Glucose Negative Bedside Urine Bilirubin ++ 2 Bedside Urine Ketone +++ 80 Urine Specific [place] 1.030 Bedside Urine Occult Blood +/- Bedside Urine pH 6.0 Bedside Urine Protein + 30 Bedside Urine Urobilinogen 2+ 4mg Bedside Urine Nitrite - Negative Bedside Urine Leukocytes + [address] scan - abdomen/pelvis: Radiologist's Impression: PROCEDURE: CT ABDOMEN PELVIS W CON INDICATIONS: right sided pain, hx diveritculitis TECHNIQUE: After the administration of intravenous contrast, 5 mm thick sections acquired from the diaphragm to the symphysis. 5 mm coronal and sagittal reformats were acquired. For radiation dose reduction, the following was used: automated exposure control, adjustment of mA and/or kV according to patient size. COMPARISON: [facility], CT, CT ABDOMEN PELVIS W CON, 04/28/2019, 9:41. FINDINGS: Image quality: Excellent. Lung bases: Lung bases are clear. Heart size is normal. Solid organs: Liver: The liver has no mass or intrahepatic biliary ductal dilatation. The portal vein and hepatic veins are patent. Biliary: The gallbladder has no gallstones, pericholecystic fluid, gallbladder wall thickening, or surrounding inflammatory change. Pancreas: The pancreas has no mass or ductal dilatation. There is no surrounding inflammation. Spleen: Normal size. There are no masses. Adrenals: No hypertrophy or nodules. Kidneys: No obstructive calculus or hydronephrosis. No solid mass. No cystic mass. Peritoneum and bowel: The distal esophagus and stomach are normal. The small bowel has a normal caliber and appearance. The terminal ileum is normal. The large bowel has diverticulosis. The mid sigmoid colon has surrounding inflammation consistent with diverticulitis without evidence of perforation or abscess.. The appendix is normal. No free fluid or air. Nodes and vessels: No retroperitoneal or mesenteric adenopathy by size criteria. Aorta and inferior vena cava are normal in size. Miscellaneous: No abdominal wall mass or hernia. PELVIS: Genitourinary: The bladder has no wall thickening or mass. No bladder calcifications. Bones: No suspicious bony lesions. No vertebral body compression fractures. IMPRESSION: 1. Acute diverticulitis of the sigmoid colon without evidence of perforation or abscess. 2. Normal appendix. Dictated by: Yuri Sotomayor M.D. on 08/20/2020 at 16:29 Approved by: Yuri Sotomayor M.D. on 08/20/2020 at 16:37 US - abdomen: Radiologist's Impression: PROCEDURE: US ABDOMEN LIMITED INDICATIONS: RIGHT UPPER QUADRANT PAIN TECHNIQUE: Real-time focused scanning was performed of the abdomen, with image documentation. COMPARISON: None. FINDINGS: This study is limited by body habitus. The liver is normal in size and demonstrates no focal lesions. No findings of gallstones or sludge are seen. The gallbladder wall is not thickened, measuring 3 mm or less. No specific pericholecystic fluid is seen. The sonographic Guerrero sign is negative. There is no biliary dilatation, the common bile duct measures 4 mm. No significant pancreatic abnormality is seen on these images, although the pancreas is not well seen. IMPRESSION: The gallbladder demonstrates a normal sonographic appearance. No biliary dilatation is seen. Dictated by: Yehuda Patricia M.D. on 08/20/2020 at 16:20 Approved by: Yehuda Patricia M.D. on 08/20/2020 at 16:21 [facility] Narrative Medical decision making narrative: Patient overall appears well she is tender but not wanting any medication. She has mild leukocytosis and found to have diverticulitis on CT. At this time recommend outpatient treatment. Discharge Plan Departure Patient Disposition: Home Clinical Impression: Diverticulitis Instructions: DI for Diverticulitis Activity Restrictions/Additional Instructions: *You have been diagnosed with diverticulitis *What to do: At this time you do have diverticulitis on CT scan no complications such as abscess or perforation at this time. This should improve with antibiotic *Continue to take medications as directed Cipro 500 mg twice a day for 10 days Flagyl 500 mg 3 times a day for 10 days *Follow up with your primary care provider in 2-3 days *Return to ER if you should have increasing pain, fever, bloody stools or any new, worsening or concerning symptoms Prescriptions: New metronidazole [Flagyl] 500 mg tablet 500 mg PO Q8H Qty: 21 RF: 0 ciprofloxacin HCl [Cipro] 500 mg tablet 500 mg PO BID Qty: 14 RF: 0 ondansetron 4 mg tablet,disintegrating 4 mg PO Q8H PRN (Reason: nausea and vomiting) Qty: 10 RF: 0 No Action levonorgestrel-ethinyl estrad 0.15 mg-30 mcg (91) tablets,dose pack,3 month 1 tab PO QPM RF: 0 cetirizine 10 mg Tablet 10 mg PO QPM RF: 0 omeprazole 20 mg Capsule,Delayed Release(Dr/Ec) 20 - 40 mg PO QPM RF: 0 sertraline 50 mg Tablet 150 mg PO QPM RF: 0 Referrals: Lloyd Hudson MD [Primary Care Provider] -
--- NOTE | 2020-08-20 15:54 | DI.CT.S_ITS ---
PROCEDURE: CT ABDOMEN PELVIS W CON INDICATIONS: right sided pain, hx diveritculitis TECHNIQUE: After the administration of intravenous contrast, 5 mm thick sections acquired from the diaphragm to the symphysis. 5 mm coronal and sagittal reformats were acquired. For radiation dose reduction, the following was used: automated exposure control, adjustment of mA and/or kV according to patient size. COMPARISON: [facility], CT, CT ABDOMEN PELVIS W CON, 04/28/2019, 9:41. FINDINGS: Image quality: Excellent. Lung bases: Lung bases are clear. Heart size is normal. Solid organs: Liver: The liver has no mass or intrahepatic biliary ductal dilatation. The portal vein and hepatic veins are patent. Biliary: The gallbladder has no gallstones, pericholecystic fluid, gallbladder wall thickening, or surrounding inflammatory change. Pancreas: The pancreas has no mass or ductal dilatation. There is no surrounding inflammation. Spleen: Normal size. There are no masses. Adrenals: No hypertrophy or nodules. Kidneys: No obstructive calculus or hydronephrosis. No solid mass. No cystic mass. Peritoneum and bowel: The distal esophagus and stomach are normal. The small bowel has a normal caliber and appearance. The terminal ileum is normal. The large bowel has diverticulosis. The mid sigmoid colon has surrounding inflammation consistent with diverticulitis without evidence of perforation or abscess.. The appendix is normal. No free fluid or air. Nodes and vessels: No retroperitoneal or mesenteric adenopathy by size criteria. Aorta and inferior vena cava are normal in size. Miscellaneous: No abdominal wall mass or hernia. PELVIS: Genitourinary: The bladder has no wall thickening or mass. No bladder calcifications. Bones: No suspicious bony lesions. No vertebral body compression fractures. IMPRESSION: 1. Acute diverticulitis of the sigmoid colon without evidence of perforation or abscess. 2. Normal appendix. Dictated by: Yuri Sotomayor M.D. on 08/20/2020 at 16:29 Approved by: Yuri Sotomayor M.D. on 08/20/2020 at 16:37
--- NOTE | 2020-08-20 15:54 | DI.US.S_ITS ---
PROCEDURE: US ABDOMEN LIMITED INDICATIONS: RIGHT UPPER QUADRANT PAIN TECHNIQUE: Real-time focused scanning was performed of the abdomen, with image documentation. COMPARISON: None. FINDINGS: This study is limited by body habitus. The liver is normal in size and demonstrates no focal lesions. No findings of gallstones or sludge are seen. The gallbladder wall is not thickened, measuring 3 mm or less. No specific pericholecystic fluid is seen. The sonographic Guerrero sign is negative. There is no biliary dilatation, the common bile duct measures 4 mm. No significant pancreatic abnormality is seen on these images, although the pancreas is not well seen. IMPRESSION: The gallbladder demonstrates a normal sonographic appearance. No biliary dilatation is seen. Dictated by: Yehuda Patricia M.D. on 08/20/2020 at 16:20 Approved by: Yehuda Patricia M.D. on 08/20/2020 at 16:21
[2020-08-20] MEDS: ONDANSETRON 4 MG/2 ML INJ IV (16:15)
[2020-08-20] MEDS: SODIUM CHLORIDE 0.9% 1,000 ML 1000 ML IV (16:35)
[2020-08-20 17:05] LABS: Bacteria Urine Moderate (10-30); Culture Indicated Urine Specimen Cultured; Mucus Urine 1+ (Negative); RBC Urine 1-5/HPF (0-5/HPF); Squamous Epithelial Cell Urine 1-5 /HPF (0-5/HPF); Urine Comments LEU ESTERASE +; WBC Urine 1-5/HPF (0-5/HPF)
[2020-08-20 17:41] VITALS: BP 154/90; PULSE 91; RESP 18; O2SAT 98
== END 2020-08-20 17:43 | disposition home or self-care (01) ==
PROVIDERS: Emergency Provider Emergency Medicine; PCP Family Medicine
DX: K57.92 Diverticulitis of intestine, part unspecified, without perforation or abscess without bleeding (principal)
CPT/HCPCS: 36415; 74177; 76705; 80053; 81003; 81015; 81025; 83690; 85025; 85610; 85730; 87086; 96361; 96374; 99284; J2405; Q9967

== ENCOUNTER → 2020-09-23 08:35 | Outpatient (CLI) | payer BC, SELFPAY ==
[2020-09-23 19:13] LABS: Add Manual Diff / Slide Review NO; Basophils Absolute Auto 100 /uL (0-100); Basophils Percent Auto 0.6 % (0-2); Eosinophils Absolute Auto 200 /uL (0-450); Eosinophils Percent Auto 1.8 % (2-4); Hemoglobin 12.6 g/dL (12.0-16.0); Lymphocytes Absolute Auto 1900 /uL (1100-4500); Lymphocytes Percent Auto 22.4 % (25-40); Mean Corpuscular HGB Conc 32.3 % (30-36); Mean Corpuscular Hemoglobin 27.4 PG (26-34); Mean Corpuscular Volume 84.7 fL (80-100); Monocytes Absolute Auto 500 /uL (0-900); Monocytes Percent Auto 6.3 % (3-14); Neutrophils Absolute Auto 5800 /uL (1500-7000); Neutrophils Percent Auto 68.9 % (50-75); Platelet Count 412 X10^3/uL (150-400); White Blood Cell Count 8.4 X10^3/uL (4.5-11.0)
[2020-09-23 19:18] LABS: Alanine Aminotransferase 24 IU/L (<35); Albumin 3.8 g/dL (3.5-5.0); Albumin Globulin Ratio 1.2 (1.0-2.8); Alkaline Phosphatase 79 U/L (38-126); Aspartate Aminotransferase 24 IU/L (14-36); BUN Creatinine Ratio 16.5 (6-22); Bilirubin Total 0.4 mg/dL (0.2-1.3); Blood Urea Nitrogen 13 mg/dL (7-17); Calcium 9.4 mg/dL (8.4-10.2); Carbon Dioxide 24 mmol/L (22-32); Chloride 105 mmol/L (98-107); Estimated Glomerular Filt Rate > 60.0 mL/min (>60); Globulin 3.1 g/dL (1.7-4.1); Glucose 102 mg/dL (70-100); HEMOLYSIS < 15 (0-50); Potassium 4.6 mmol/L (3.4-5.1); Sodium 138 mmol/L (137-145); Total Protein 6.9 g/dL (6.3-8.2)
[2020-09-23 19:46] LABS: TSH w/ Reflex to FT4 4.73 uIU/mL (0.47-4.68)
[2020-09-23 20:33] LABS: Free T4, Direct Thyroxine 0.99 ng/dL (0.78-2.19)
== END ==
PROVIDERS: PCP Family Medicine; Visit Provider Family Medicine
DX: E66.01 Morbid (severe) obesity due to excess calories (principal); F32.9 Major depressive disorder, single episode, unspecified; F41.9 Anxiety disorder, unspecified; K57.32 Diverticulitis of large intestine without perforation or abscess without bleeding; R79.89 Other specified abnormal findings of blood chemistry; Z68.43 Body mass index [BMI] 50.0-59.9, adult
CPT/HCPCS: 80053; 84439; 84443; 85025